=== PATIENT | female | born 1985 ===

== ENCOUNTER 2017-10-01 08:52 | Inpatient (IN) | payer MEDICAID ==
[2017-10-01 09:07] VITALS: BMI 22.4
[2017-10-01] MEDS ORDERED: Sodium Chloride 0.9% 1,000 ML IV ONE (09:16)
[2017-10-01] MEDS ORDERED: Sodium Chloride 0.9% 1,000 ML ONE (09:53)
[2017-10-01 10:13] LABS: HCG,QUALITATIVE URINE NEGATIVE (NEGATIVE)
[2017-10-01 10:14] LABS: BASO % 0.3 % (0.0-2.0); HEMOGLOBIN 12.3 g/dL (11.0-16.0); LYMPH # 0.9 K/uL (1.0-4.3); LYMPH % 6.5 % (20.0-40.0); MEAN CELL VOLUME 98.6 fL (81.0-99.0); MEAN CORPUSCULAR HEMOGLOBIN 32.8 pg (27.0-31.0); MEAN CORPUSCULAR HGB CONC 33.2 g/dL (33.0-37.0); MEAN PLATELET VOLUME 8.8 fL (7.2-11.7); MONO # 0.6 K/uL (0.0-0.8); MONO % 4.6 % (0.0-10.0); NEUT # 11.8 K/uL (1.8-7.0); NEUT % 88.6 % (50.0-75.0); PLATELET COUNT 191 K/uL (130-400); RBC 3.77 Mil/uL (3.80-5.20); RED CELL DISTRIBUTION WIDTH 13.6 % (11.5-14.5); WHITE BLOOD COUNT 13.4 K/uL (4.8-10.8)
[2017-10-01 10:17] LABS: INR 1.2; PROTHROMBIN TIME 12.7 SECONDS (9.7-12.2); SQUAMOUS EPITHIAL 11 /hpf (0-5); URINE BILIRUBIN NEGATIVE (NEGATIVE); URINE BLOOD 1+ (NEGATIVE); URINE CLARITY Hazy (Clear); URINE COLOR Yellow (YELLOW); URINE GLUCOSE (UA) NORMAL (Normal); URINE LEUKOCYTE ESTERASE NEG Leu/uL (Negative); URINE PROTEIN NEGATIVE (NEGATIVE)
[2017-10-01 10:21] LABS: ALB/GLOB RATIO 1.1 (1.0-2.1); ALBUMIN 4.1 g/dL (3.5-5.0); ALT/SGPT 21 U/L (9-52); AST/SGOT 20 U/L (14-36); BLOOD UREA NITROGEN 8 mg/dL (7-17); CALCIUM 9.3 mg/dl (8.6-10.4); GFR AFRICAN-AMERICAN > 60; GFR NON-AFRICAN AMERICAN > 60; LIPASE 64 U/L (23-300)
[2017-10-01 11:02] LABS: LYMPHOCYTE 7 % (20-40); TOTAL CELLS COUNTED 100
[2017-10-01 11:03] LABS: BANDS 6 % (0-2); EOSINOPHIL 1 % (0-4); MONOCYTE 3 % (0-10); NEUTROPHIL 83 % (50-75)
[2017-10-01 11:04] LABS: PLATELET ESTIMATE NORMAL (NORMAL)
--- NOTE | 2017-10-01 11:17 | C.PDOC ---
History Of Present Illness 32-year-old female, presents to the emergency department with complaints of diffuse abdominal pain x3 days. Pt has associated nausea. Denies any vomiting, fever, chills, chest pain, or any other associated symptoms. No other complaints at this time. Time Seen by Provider: 10/01/17 08:54 Chief Complaint (Nursing): Abdominal Pain History Per: Patient History/Exam Limitations: no limitations Current Symptoms Are (Timing): Still Present Severity: Moderate Past Medical History Reviewed: Historical Data, Nursing Documentation, Vital Signs Vital Signs: Last Vital Signs Temp 98 F 10/04/17 16:00 Pulse 78 10/04/17 16:00 Resp 20 10/04/17 16:00 BP 107/66 10/04/17 16:00 Pulse Ox 97 10/04/17 16:00 Family History: States: No Known Family Hx - Social History Hx Alcohol Use: No Hx Substance Use: No - Immunization History Hx Tetanus Toxoid Vaccination: No Hx Influenza Vaccination: No Hx Pneumococcal Vaccination: No Review Of Systems Constitutional: Negative for: Fever, Chills Gastrointestinal: Positive for: Nausea, Abdominal Pain Genitourinary: Negative for: Dysuria, Hematuria Musculoskeletal: Negative for: Back Pain Neurological: Negative for: Weakness Physical Exam - Physical Exam Appears: Non-toxic, No Acute Distress Skin: Normal Color, Warm, Dry, No Rash Head: Atraumatic, Normacephalic Eye(s): bilateral: Normal Inspection Nose: Normal Oral Mucosa: Moist Lips: Normal Appearing Neck: Normal ROM Cardiovascular: Rhythm Regular, No Murmur Respiratory: Normal Breath Sounds, No Accessory Muscle Use Gastrointestinal/Abdominal: Soft, Tenderness (mild, non-focal), No Guarding, No Rebound Extremity: Normal ROM, No Deformity, No Swelling Neurological/Psych: Oriented x3, Normal Speech ED Course And Treatment - Laboratory Results Result Diagrams: 10/04/17 12:43 10/04/17 12:43 O2 Sat by Pulse Oximetry: 98 (RA) Pulse Ox Interpretation: Normal Medical Decision Making Medical Decision Making: abd pain - ro colitis gastritis appendiciits- labs imaging pending inital ct shows ?appendcitis vs colitis, radiolgist recommends repeat ct with po contrast. repeat shows ?tip appendcitis vs abscess. case discussed with dr morales accepts for admission. iv anbiotics initiated. Disposition - Disposition Disposition: HOSPITALIZED Disposition Time: 05:30 Condition: STABLE - Clinical Impression Clinical Impression: Appendicitis, Colitis, Intra-abdominal abscess - Scribe Statement The provider has reviewed the documentation as recorded by the Scribe (Srinath Carmen) All medical record entries made by the Scribe were at my direction and personally dictated by me. I have reviewed the chart and agree that the record accurately reflects my personal performance of the history, physical exam, medical decision making, and the department course for this patient. I have also personally directed, reviewed, and agree with the discharge instructions and disposition. Decision To Admit - Pt Status Changed To: Hospital Disposition Of: Inpatient - Admit Certification Admit to Inpatient:: After my assessment, the patient will require hospitalization for at least two midnights. This is because of the severity of symptoms shown, intensity of services needed, and/or the medical risk in this patient being treated as an outpatient. - InPatient: Physician Admission Certification:: needs gi and surgical eval. - . Bed Request Type: Regular Admitting Physician: Naty Morales Patient Diagnosis: Appendicitis, Colitis, Intra-abdominal abscess
[2017-10-01] MEDS ORDERED: Iodixanol 320 mg/ml 150 ml Bottle IV ONE (11:24)
[2017-10-01] MEDS ORDERED: Iohexol 240 (50 ml) PO STA (13:11)
--- NOTE | 2017-10-01 13:13 | CT ---
Date of service: 10/01/2017 PROCEDURE: CT Abdomen and Pelvis with contrast HISTORY: Abdominal pain and distention COMPARISON: None. TECHNIQUE: CT scan of the abdomen and pelvis was performed after administration of intravenous contrast. Oral contrast was administered. Coronal and sagittal reformatted images were obtained. Contrast dose: 100 mL Visipaque Radiation dose: Total exam DLP = 218.16 mGy-cm. This CT exam was performed using one or more of the following dose reduction techniques: Automated exposure control, adjustment of the mA and/or kV according to patient size, and/or use of iterative reconstruction technique. FINDINGS: LOWER THORAX: The visualized lungs are clear. LIVER: Normal in size with homogeneous enhancement. No gross lesion or ductal dilatation. GALLBLADDER AND BILE DUCTS: No calcified gallstones. PANCREAS: Normal in size with homogeneous enhancement. No gross lesion or ductal dilatation. SPLEEN: Normal in size with homogeneous enhancement. ADRENALS: No discrete nodule. KIDNEYS AND URETERS: Normal in size with homogeneous enhancement. No hydronephrosis. No solid mass. VASCULATURE: No aortic aneurysm. BOWEL: The proximal small bowel loops are normal in caliber. There are fluid-filled mildly dilated distal small bowel lobes. There is apparent mild circumferential mural thickening in the descending colon. There is also segmental mural thickening in the sigmoid colon with mild pericolonic inflammatory changes. APPENDIX: The appendix is not distinctly identified. PERITONEUM: There is small amount of fluid in the right lower quadrant. No free air. LYMPH NODES: Mildly enlarged right lower quadrant mesenteric lymph nodes. BLADDER: Grossly normal in appearance. REPRODUCTIVE: The uterus is normal in size. BONES: No acute fracture. Within normal limits for the patient's age. OTHER FINDINGS: None. IMPRESSION: 1. Apparent moderate mural thickening in the descending colon is nonspecific and could be related to underdistention however nonspecific acute infectious/ inflammatory colitis cannot be entirely excluded. Also noted is segmental mural thickening in the sigmoid colon with mild pericolonic inflammatory changes. No bowel obstruction. 2. The appendix is not distinctly identified. Small amount of fluid in the right lower quadrant is of uncertain etiology and clinical significance. It is indeterminate TB inflammatory changes in the right cord quadrant are related to an inflamed appendix or sigmoid colon. Is there is a clinical concern for acute appendicitis, repeat CT scan with oral contrast is recommended for better evaluation of the ileocecal region an appendix. Important findings were discussed with Dr. Eliud Diop on 10/01/2017 at 12:35 p.m.
[2017-10-01] MEDS ORDERED: Iohexol 240 (50 ml) ONE (13:27)
--- NOTE | 2017-10-01 16:18 | CT ---
Date of service: 10/01/2017 PROCEDURE: CT Abdomen and Pelvis with contrast HISTORY: repeat with po, ro appendicitis COMPARISON: None. TECHNIQUE: CT scan of the abdomen and pelvis was performed without administration of intravenous contrast. Oral contrast was administered. Coronal and sagittal reformatted images were obtained. Radiation dose: Total exam DLP = 218.16 MGy-cm. This CT exam was performed using one or more of the following dose reduction techniques: Automated exposure control, adjustment of the mA and/or kV according to patient size, and/or use of iterative reconstruction technique. FINDINGS: LOWER THORAX: The visualized lungs are clear. LIVER: Normal in size. GALLBLADDER AND BILE DUCTS: There is vicarious excretion of contrast in the gallbladder. PANCREAS: Normal in size. No gross lesion or ductal dilatation. SPLEEN: Normal in size. ADRENALS: No discrete nodule. KIDNEYS AND URETERS: Normal in size. No hydronephrosis. No solid mass. There is contrast in the collecting system from prior intravenous injection. VASCULATURE: No aortic aneurysm. BOWEL: The small bowel loops are normal in caliber. The ascending and transverse colon are unremarkable. There is moderate circumferential mural thickening in the splenic flexure and descending colon. There is also segmental mural thickening in the mid sigmoid colon. APPENDIX: On this follow-up CT scan after ingestion of oral contrast, the appendix is visualized in its entirety 80 except the tip. There is an apparent 2.4 x 4.2 cm heterogeneous rim enhancing lobular lesion in the right lower quadrant and in the right hemipelvis. PERITONEUM: No free fluid. No free air. LYMPH NODES: No enlarged lymph nodes. BLADDER: Unremarkable. REPRODUCTIVE: Unremarkable. BONES: No acute fracture. OTHER FINDINGS: None. IMPRESSION: On this follow-up CT scan after ingestion of oral contrast, the appendix is visualized almost in its entirety except the tip there is heterogeneous rim enhancing lobular lesion in the right lower quadrant and hemipelvis measuring approximately 2.4 x 4.2 cm. Also noted is persistent moderate mural thickening in the splenic flexure and descending colon as well as segmental mural thickening in the mid sigmoid colon. These findings could be related to nonspecific infectious/inflammatory colitis including Crohn's disease with phlegmon/developing abscess in the right lower quadrant and hemipelvis. Since the tip of the appendix is not distinctly visualized, tip appendicitis and developing appendicular abscess is also differential consideration. Clinical correlation and follow-up is advised.
[2017-10-01] MEDS ORDERED: Piperacillin/Tazobact 3.375 gm 100 ML IVPB STA (16:19)
[2017-10-01] MEDS ORDERED: Piperacillin/Tazobact 3.375 gm 100 ML IVPB ONE (16:41)
--- NOTE | 2017-10-01 17:02 | CP.PCM.CON ---
History of Present Illness - History of Present Illness History of Present Illness: Surgery: Dr. Segal CC: Abdominal pain HPI: 32F w. pmh of asthma presents to ED with abdominal pain since Thursday. Pain is predominantly R sided. Pain waxes and waned in severity. No alleviating or aggravating factors. Pt has no changes in appetite. No N/V/D. Pt is having normal BMs. Last BM was yesterday, non-bloody. Passing flatus today. Denies F/ C. No Hematuria/Dysuria. No recent travel. No recent sick contacts. Pt has not had anything to eat out of the ordinary. Last period was September 14 and it was normal. PMH: asthma PSH: laparoscopy for ectopic 9 yrs ago Meds: none NKDA Social: No ETOH/Tobacco/Drugs Fhx: No HX of inflammatory bowel disease Review of Systems - Review of Systems All systems: reviewed and no additional remarkable complaints except Past Patient History - Past Social History Smoking Status: Never Smoked - PSYCHIATRIC Hx Substance Use: No - SURGICAL HISTORY Hx Surgeries: Yes Other/Comment: ectopic with surgery - ANESTHESIA Hx Anesthesia: Yes Hx Anesthesia Reactions: No Meds Allergies/Adverse Reactions: Allergies Allergy/AdvReac Type Severity Reaction Status Date / Time No Known Allergies Allergy Verified 10/01/17 09:05 Physical Exam - Constitutional Appears: Non-toxic, No Acute Distress - Head Exam Head Exam: ATRAUMATIC, NORMOCEPHALIC - Eye Exam Eye Exam: EOMI - ENT Exam ENT Exam: Mucous Membranes Moist, Normal External Ear Exam - Neck Exam Neck exam: Positive for: Full Rom - Respiratory Exam Respiratory Exam: NORMAL BREATHING PATTERN. absent: Accessory Muscle Use, Respiratory Distress - Cardiovascular Exam Cardiovascular Exam: Tachycardia - GI/Abdominal Exam GI & Abdominal Exam: Soft, Tenderness (RUQ/RLQ). absent: Distended, Firm, Guarding, Hernia, Rebound, Rigid Additional comments: no psoas sign, no obturator sign - Extremities Exam Extremities exam: Negative for: calf tenderness, pedal edema - Neurological Exam Neurological exam: Alert, Oriented x3 - Psychiatric Exam Psychiatric exam: Normal Affect, Normal Mood - Skin Skin Exam: Dry, Normal Color, Warm Results - Vital Signs Recent Vital Signs: Last Vital Signs Temp 99.6 F 10/01/17 16:02 Pulse 101 H 10/01/17 16:02 Resp 18 10/01/17 16:02 BP 105/69 10/01/17 16:02 Pulse Ox 98 10/01/17 16:02 - Labs Result Diagrams: 10/01/17 10:00 10/01/17 10:00 Labs: Laboratory Results - last 24 hr 10/01/17 10/01/17 10/01/17 10:00 10:00 10:00 WBC 13.4 H RBC 3.77 L Hgb 12.3 Hct 37.1 MCV 98.6 MCH 32.8 H MCHC 33.2 RDW 13.6 Plt Count 191 MPV 8.8 Neut % (Auto) 88.6 H Lymph % (Auto) 6.5 L [place] % (Auto) 4.6 Eos % (Auto) 0.0 Baso % (Auto) 0.3 Neut # (Auto) 11.8 H Lymph # (Auto) 0.9 L [place] # (Auto) 0.6 Eos # (Auto) 0.0 Baso # (Auto) 0.0 Neutrophils % (Manual) 83 H Band Neutrophils % 6 H Lymphocytes % (Manual) 7 L Monocytes % (Manual) 3 Eosinophils % (Manual) 1 Platelet Estimate Normal RBC Morphology Normal PT 12.7 H INR 1.2 APTT 27 Sodium Potassium Chloride Carbon Dioxide Anion Gap BUN Creatinine Est GFR ( Amer) Est GFR (Non-Af Amer) Random Glucose Calcium Total Bilirubin AST ALT Alkaline Phosphatase Total Protein Albumin Globulin Albumin/Globulin Ratio Lipase Urine Color Yellow Urine Clarity Hazy Urine pH 5.0 Ur Specific [place] 1.019 Urine Protein Negative Urine Glucose (UA) Normal Urine Ketones Negative Urine Blood 1+ H Urine Nitrate Negative Urine Bilirubin Negative Urine Urobilinogen 2.0 H Ur Leukocyte Esterase Neg Urine WBC (Auto) 2 Urine RBC (Auto) 1 Ur Squamous Epith Cells 11 H Urine HCG, Qual Negative 10/01/17 10:00 WBC RBC Hgb Hct MCV MCH MCHC RDW Plt Count MPV Neut % (Auto) Lymph % (Auto) [place] % (Auto) Eos % (Auto) Baso % (Auto) Neut # (Auto) Lymph # (Auto) [place] # (Auto) Eos # (Auto) Baso # (Auto) Neutrophils % (Manual) Band Neutrophils % Lymphocytes % (Manual) Monocytes % (Manual) Eosinophils % (Manual) Platelet Estimate RBC Morphology PT INR APTT Sodium 139 Potassium 4.1 Chloride 104 Carbon Dioxide 22 Anion Gap 16 BUN 8 Creatinine 0.6 L Est GFR ( Amer) > 60 Est GFR (Non-Af Amer) > 60 Random Glucose 113 H Calcium 9.3 Total Bilirubin 0.4 AST 20 ALT 21 Alkaline Phosphatase 77 Total Protein 7.6 Albumin 4.1 Globulin 3.5 Albumin/Globulin Ratio 1.1 Lipase 64 Urine Color Urine Clarity Urine pH Ur Specific [place] Urine Protein Urine Glucose (UA) Urine Ketones Urine Blood Urine Nitrate Urine Bilirubin Urine Urobilinogen Ur Leukocyte Esterase Urine WBC (Auto) Urine RBC (Auto) Ur Squamous Epith Cells Urine HCG, Qual - Imaging and Cardiology CT scan - abdomen Status: Image reviewed by me, Report reviewed by me Assessment & Plan - Assessment and Plan (Free Text) Assessment: 32F w. abd pain likely colitis vs appendicitis -NPO -IVF -zosyn -serial abd exams -no plans for surgery at this time -recommend GI consult -will follow closely -d/w attending Jaydeitis PGY4
--- NOTE | 2017-10-01 17:15 | CP.PCM.HP ---
<Arthur Avalos - Last Filed: 10/01/17 21:24> History of Present Illness - History of Present Illness History of Present Illness: CC "abdominal pain" HPI Patient is a 32 year old female with history of ovarian cyst presents for 2 day history of abdominal pain that started on her right, then went to left side , now currently diffusely all over her abdomen. She states her pain feels like contractions, with her pain going up to a 10 at maximum, and going down to a 7. She states her stools are irregular with occasional constipation and diarrhea. Admits to some distention of her abdomen as well. She states her pain is worse with breathing. She admits to some right sided back pain yesterday that she does not have currently. Admits to chills, diaphoresis from pain, weight loss of 3lbs. She denies headaches, dizziness, nausea, vomiting, shortness of breath , chest pain, dysuria, blood in her urine, leg pain, leg swelling. She last ate around 8pm yesterday. Her last bowel movement was last night. She denies recent travel, recent sickness, recent sick contacts, new foods. She states she eats home cooked foods. She denies difficulty swallowing, sour taste in her mouth. PMH: asthma as a child, ovarian cyst PSH: laparoscopy for ectopic 9 years ago - surgery in [place] Social hx: denies tobacco, alcohol or drug use. Lives with her daughter. 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 maternal aunt -colon cancer in her 60s. maternal grandmother - [place] in her 80s. Meds: none allergies: seafood - rash, itching Code status: full code Healthcare proxy: Sister Jaylen - lives in [facility]. Phone # [phone] PMD: Deanne Present on Admission - Present on Admission Any Indicators Present on Admission: No Review of Systems - Constitutional Constitutional: Chills. absent: Excessive Sweating, Frequent Falls, Headache, Weight Gain - EENT Eyes: absent: Blurred Vision, Change in Vision, Dry Eye Ears: absent: Decreased Hearing, Abnormal Hearing, Dizziness Nose/Mouth/Throat: absent: Dysphagia, Hoarsness, Sore Throat - Cardiovascular Cardiovascular: absent: Chest Pain, Dyspnea, Leg Edema, Lightheadedness, Syncope - Respiratory Respiratory: absent: Cough, Dyspnea, Chest Congestion - Gastrointestinal Gastrointestinal: Abdominal Pain, Bloating, Change in Stool Character. absent: Dysphagia, Fecal Incontinence, Hematemesis, Hematochezia, Vomiting - Genitourinary Genitourinary: absent: Dysuria, Hematuria - Musculoskeletal Musculoskeletal: absent: Back Pain, Limited Range of Motion, Muscle Weakness, Myalgias - Integumentary Integumentary: absent: Rash - Neurological Neurological: absent: Abnormal Movements, Burning Sensations, Numbness, Headaches - Psychiatric Psychiatric: absent: Change in Appetite, Hallucinations, Irritability - Hematologic/Lymphatic Hematologic: absent: Easy Bleeding, Easy Bruising Past Patient History - Past Social History Smoking Status: Never Smoked - PSYCHIATRIC Hx Substance Use: No - SURGICAL HISTORY Hx Surgeries: Yes Other/Comment: ectopic with surgery - ANESTHESIA Hx Anesthesia: Yes Hx Anesthesia Reactions: No Meds Allergies/Adverse Reactions: Allergies Allergy/AdvReac Type Severity Reaction Status Date / Time seafood Allergy Uncoded 10/01/17 18:01 Physical Exam - Constitutional Appears: Well, Non-toxic, No Acute Distress - Head Exam Head Exam: ATRAUMATIC, NORMOCEPHALIC - Eye Exam Eye Exam: EOMI - ENT Exam ENT Exam: Mucous Membranes Dry - Neck Exam Neck exam: Positive for: Full Rom. Negative for: Tenderness - Respiratory Exam Respiratory Exam: Clear to Auscultation Bilateral, NORMAL BREATHING PATTERN. absent: Rales, Rhonchi, Wheezes, Respiratory Distress, Stridor - Cardiovascular Exam Cardiovascular Exam: Tachycardia, REGULAR RHYTHM, +S1, +S2 - GI/Abdominal Exam GI & Abdominal Exam: Distended, Hyperactive Bowel Sounds (in RLQ), Soft, Tenderness (Questionable tenderness to diffusely, especially in RLQ - patient nontender when distracted. Negative Ureña's sign. ). absent: Firm, Guarding, Hernia, Rebound, Rigid - Rectal Exam Rectal Exam: Deferred - Extremities Exam Extremities exam: Positive for: normal capillary refill, pedal pulses present. Negative for: calf tenderness, pedal edema, tenderness - Back Exam Back exam: absent: CVA tenderness (L), CVA tenderness (R), rash noted - Psychiatric Exam Psychiatric exam: Normal Affect, Normal Mood - Skin Skin Exam: Dry, Intact, Warm Results - Vital Signs Recent Vital Signs: Last Vital Signs Temp 99.6 F 10/01/17 16:02 Pulse 101 H 10/01/17 16:02 Resp 18 10/01/17 16:02 BP 105/69 10/01/17 16:02 Pulse Ox 98 10/01/17 16:02 - Labs Result Diagrams: 10/01/17 10:00 10/01/17 10:00 Labs: Laboratory Results - last 24 hr 10/01/17 10/01/17 10/01/17 10:00 10:00 10:00 WBC 13.4 H RBC 3.77 L Hgb 12.3 Hct 37.1 MCV 98.6 MCH 32.8 H MCHC 33.2 RDW 13.6 Plt Count 191 MPV 8.8 Neut % (Auto) 88.6 H Lymph % (Auto) 6.5 L [place] % (Auto) 4.6 Eos % (Auto) 0.0 Baso % (Auto) 0.3 Neut # (Auto) 11.8 H Lymph # (Auto) 0.9 L [place] # (Auto) 0.6 Eos # (Auto) 0.0 Baso # (Auto) 0.0 Neutrophils % (Manual) 83 H Band Neutrophils % 6 H Lymphocytes % (Manual) 7 L Monocytes % (Manual) 3 Eosinophils % (Manual) 1 Platelet Estimate Normal RBC Morphology Normal PT 12.7 H INR 1.2 APTT 27 Sodium Potassium Chloride Carbon Dioxide Anion Gap BUN Creatinine Est GFR ( Amer) Est GFR (Non-Af Amer) Random Glucose Calcium Total Bilirubin AST ALT Alkaline Phosphatase Total Protein Albumin Globulin Albumin/Globulin Ratio Lipase Urine Color Yellow Urine Clarity Hazy Urine pH 5.0 Ur Specific [place] 1.019 Urine Protein Negative Urine Glucose (UA) Normal Urine Ketones Negative Urine Blood 1+ H Urine Nitrate Negative Urine Bilirubin Negative Urine Urobilinogen 2.0 H Ur Leukocyte Esterase Neg Urine WBC (Auto) 2 Urine RBC (Auto) 1 Ur Squamous Epith Cells 11 H Urine HCG, Qual Negative 10/01/17 10:00 WBC RBC Hgb Hct MCV MCH MCHC RDW Plt Count MPV Neut % (Auto) Lymph % (Auto) [place] % (Auto) Eos % (Auto) Baso % (Auto) Neut # (Auto) Lymph # (Auto) [place] # (Auto) Eos # (Auto) Baso # (Auto) Neutrophils % (Manual) Band Neutrophils % Lymphocytes % (Manual) Monocytes % (Manual) Eosinophils % (Manual) Platelet Estimate RBC Morphology PT INR APTT Sodium 139 Potassium 4.1 Chloride 104 Carbon Dioxide 22 Anion Gap 16 BUN 8 Creatinine 0.6 L Est GFR ( Amer) > 60 Est GFR (Non-Af Amer) > 60 Random Glucose 113 H Calcium 9.3 Total Bilirubin 0.4 AST 20 ALT 21 Alkaline Phosphatase 77 Total Protein 7.6 Albumin 4.1 Globulin 3.5 Albumin/Globulin Ratio 1.1 Lipase 64 Urine Color Urine Clarity Urine pH Ur Specific [place] Urine Protein Urine Glucose (UA) Urine Ketones Urine Blood Urine Nitrate Urine Bilirubin Urine Urobilinogen Ur Leukocyte Esterase Urine WBC (Auto) Urine RBC (Auto) Ur Squamous Epith Cells Urine HCG, Qual Assessment & Plan - Assessment and Plan (Free Text) Plan: Assessment/plan 1. Abdominal pain Infectious vs. inflammatory Possible IBD Possible appendicitis * In ED: patient received NS 1L bolus, Zosyn 3.375g IV, protonix 40mg IV, Tylenol * Abdomen CT with IV contrast 1. Apparent moderate mural thickening in the descending colon is nonspecific and could be related to underdistention however nonspecific acute infectious/ inflammatory colitis cannot be entirely excluded. Also noted is segmental mural thickening in the sigmoid colon with mild pericolonic inflammatory changes. No bowel obstruction. 2. The appendix is not distinctly identified. Small amount of fluid in the right lower quadrant is of uncertain etiology and clinical significance. It is indeterminate TB inflammatory changes in the right cord quadrant are related to an inflamed appendix or sigmoid colon. Is there is a clinical concern for acute appendicitis , repeat CT scan with oral contrast is recommended for better evaluation of the ileocecal region an appendix. * Abdomen CT with oral contrast On this follow-up CT scan after ingestion of oral contrast, the appendix is visualized almost in its entirety except the tip there is heterogeneous rim enhancing lobular lesion in the right lower quadrant and hemipelvis measuring approximately 2.4 x 4.2 cm. Also noted is persistent moderate mural thickening in the splenic flexure and descending colon as well as segmental mural thickening in the mid sigmoid colon. These findings could be related to nonspecific infectious/inflammatory colitis including Crohn's disease with phlegmon/developing abscess in the right lower quadrant and hemipelvis. Since the tip of the appendix is not distinctly visualized, tip appendicitis and developing appendicular abscess is also differential consideration. Clinical correlation and follow-up is advised. * Follow up on Abdomen US * GI Dr. Rubio consulted, help appreciated. * Follow up on ERVIN, ANCA, CRP, ESR * NS IV fluids at 100cc/hr * Zosyn 3.375g IVPV Q6 * Tylenol 650mg PO PRN * NPO except meds 2. Leukocytosis * WBC 13.4 with left shift * Afebrile, tachycardic * Lactic acid 1.3 * follow up procalcitonin * Follow up repeat UA * follow up repeat urine and blood cultures 3. Prophylaxis * SCDs Case discussed with Dr. Andrew Avalos, MARKYI <Naty Morales V - Last Filed: 10/03/17 14:06> Results - Vital Signs Recent Vital Signs: Last Vital Signs Temp 98.6 F 10/02/17 15:53 Pulse 107 H 10/02/17 15:53 Resp 20 10/02/17 15:53 BP 102/62 10/02/17 15:53 Pulse Ox 99 10/02/17 15:53 - Labs Result Diagrams: 10/03/17 06:22 10/03/17 06:22 Labs: Laboratory Results - last 24 hr 10/01/17 10/01/17 10/01/17 19:40 19:40 19:40 WBC RBC Hgb Hct MCV MCH MCHC RDW Plt Count MPV Neut % (Auto) Lymph % (Auto) [place] % (Auto) Eos % (Auto) Baso % (Auto) Neut # (Auto) Lymph # (Auto) [place] # (Auto) Eos # (Auto) Baso # (Auto) ESR 48 H Sodium Potassium Chloride Carbon Dioxide Anion Gap BUN Creatinine Est GFR ( Amer) Est GFR (Non-Af Amer) Random Glucose Lactic Acid Calcium Phosphorus Magnesium Total Bilirubin AST ALT Alkaline Phosphatase Total Protein Albumin Globulin Albumin/Globulin Ratio Amylase 97 Procalcitonin Beta HCG, Quant < 2.39 ERVIN 6 Profile Negative 10/01/17 10/01/17 10/02/17 19:40 19:44 07:18 WBC 12.1 H RBC 3.21 L Hgb 10.9 L Hct 31.6 L MCV 98.6 MCH 34.0 H MCHC 34.4 RDW 13.0 Plt Count 191 MPV 8.7 Neut % (Auto) 79.4 H Lymph % (Auto) 12.7 L [place] % (Auto) 7.3 Eos % (Auto) 0.2 Baso % (Auto) 0.4 Neut # (Auto) 9.6 H Lymph # (Auto) 1.5 [place] # (Auto) 0.9 H Eos # (Auto) 0.0 Baso # (Auto) 0.0 ESR Sodium Potassium Chloride Carbon Dioxide Anion Gap BUN Creatinine Est GFR ( Amer) Est GFR (Non-Af Amer) Random Glucose Lactic Acid 1.3 Calcium Phosphorus Magnesium Total Bilirubin AST ALT Alkaline Phosphatase Total Protein Albumin Globulin Albumin/Globulin Ratio Amylase Procalcitonin 0.16 L Beta HCG, Quant ERVIN 6 Profile 10/02/17 07:18 WBC RBC Hgb Hct MCV MCH MCHC RDW Plt Count MPV Neut % (Auto) Lymph % (Auto) [place] % (Auto) Eos % (Auto) Baso % (Auto) Neut # (Auto) Lymph # (Auto) [place] # (Auto) Eos # (Auto) Baso # (Auto) ESR Sodium 137 Potassium 3.8 Chloride 108 H Carbon Dioxide 15 L Anion Gap 17 BUN 6 L Creatinine 0.7 Est GFR ( Amer) > 60 Est GFR (Non-Af Amer) > 60 Random Glucose 64 L Lactic Acid Calcium 8.8 Phosphorus 3.4 Magnesium 1.7 Total Bilirubin 0.8 AST 13 L D ALT 26 Alkaline Phosphatase 73 Total Protein 6.5 Albumin 3.4 L Globulin 3.1 Albumin/Globulin Ratio 1.1 Amylase Procalcitonin Beta HCG, Quant ERVIN 6 Profile Attending/Attestation - Attestation I have personally seen and examined this patient.: Yes I have fully participated in the care of the patient.: Yes I have reviewed all pertinent clinical information: Yes Notes (Text): This is a late computer entry for 10/01/2017. Patient seen, examined, and case discussed with medical director of hospice. Patient seen and examined at [facility] bed 15 in the emergency room at approximately 5:45 PM. Patient was seen earlier by the general surgery team. Patient reporting to the onset of abdominal pain, associated dominant distention denies nausea denies vomiting denies diarrhea. Patient is not . Patient initially received a CAT scan CT with IV contrast and then had a repeat a CAT scan with by mouth contrast. We will consult both GI and general surgery. There is a dispute between appendicitis versus colitis versus possible Crohn's. We will we will give IV antibiotics to cover including Zosyn Patient does have leukocytosis we will check pro-calcitonin urine and blood cultures. Patient does have a history of asthma but is not currently using any nebulizer treatment. Nor does she had any acute exacerbation. Assessment/Plan 1. Abdominal pain Infectious vs. inflammatory Possible IBD Possible appendicitis Assessment/Plan * GI (Dr. Rubio) promotions intern-->help appreciated * General Surgery (Dr. Freddy Segal) promotions intern-->help appreciated * In ED: patient received NS 1L bolus, Zosyn 3.375g IV, protonix 40mg IV, Tylenol * Abdomen CT with IV contrast (10/01/17) 1. Apparent moderate mural thickening in the descending colon is nonspecific and could be related to underdistention however nonspecific acute infectious/ inflammatory colitis cannot be entirely excluded. Also noted is segmental mural thickening in the sigmoid colon with mild pericolonic inflammatory changes. No bowel obstruction. 2. The appendix is not distinctly identified. Small amount of fluid in the right lower quadrant is of uncertain etiology and clinical significance. It is indeterminate TB inflammatory changes in the right cord quadrant are related to an inflamed appendix or sigmoid colon. Is there is a clinical concern for acute appendicitis , repeat CT scan with oral contrast is recommended for better evaluation of the ileocecal region an appendix. * Abdomen CT with oral contrast (10/01/17): On this follow-up CT scan after ingestion of oral contrast, the appendix is visualized almost in its entirety except the tip there is heterogeneous rim enhancing lobular lesion in the right lower quadrant and hemipelvis measuring approximately 2.4 x 4.2 cm. Also noted is persistent moderate mural thickening in the splenic flexure and descending colon as well as segmental mural thickening in the mid sigmoid colon. These findings could be related to nonspecific infectious/inflammatory colitis including Crohn's disease with phlegmon/developing abscess in the right lower quadrant and hemipelvis. Since the tip of the appendix is not distinctly visualized, tip appendicitis and developing appendicular abscess is also differential consideration. Clinical correlation and follow-up is advised. * Follow up on Abdomen US * Follow up on ERVIN, ANCA, CRP, ESR * NS IV fluids at 100cc/hr * Zosyn 3.375g IVPV Q6H (active since 10/01/17) * Tylenol 650mg PO PRN * NPO except meds 2. Leukocytosis Assessment/Plan * WBC 13.4 with left shift * Afebrile, tachycardic * Lactic acid 1.3 * follow up procalcitonin * Follow up repeat UA * follow up repeat urine and blood cultures 3. Prophylaxis * SCDs while in bed * Ambulatory as tolerated
[2017-10-01] MEDS ORDERED: Piperacillin/Tazobact 3.375 GM in Sodium Chloride 100 ML IVPB SCH (17:30)
[2017-10-01] MEDS: Sodium Chloride 0.9% 1,000 ML IV SCH (18:00)
[2017-10-01 20:19] LABS: AMYLASE 97 U/L (30-110)
[2017-10-01 20:21] VITALS: RESP 20
[2017-10-01] MEDS: Piperacill/Tazo 3.375gm in Dex 3.375 GM/50 ML BAG IVPB SCH (22:15)
[2017-10-02] MEDS: Piperacill/Tazo 3.375gm in Dex 3.375 GM/50 ML BAG IVPB SCH ×4 (04:10→22:44)
[2017-10-02] MEDS: Sodium Chloride 0.9% 1,000 ML IV SCH ×4 (04:12→23:54)
[2017-10-02 07:28] LABS: BASO % 0.4 % (0.0-2.0); EOS % 0.2 % (0.0-4.0); HEMOGLOBIN 10.9 g/dL (11.0-16.0); LYMPH # 1.5 K/uL (1.0-4.3); LYMPH % 12.7 % (20.0-40.0); MEAN CELL VOLUME 98.6 fL (81.0-99.0); MEAN CORPUSCULAR HGB CONC 34.4 g/dL (33.0-37.0); MEAN PLATELET VOLUME 8.7 fL (7.2-11.7); MONO # 0.9 K/uL (0.0-0.8); MONO % 7.3 % (0.0-10.0); NEUT # 9.6 K/uL (1.8-7.0); NEUT % 79.4 % (50.0-75.0); RBC 3.21 Mil/uL (3.80-5.20); WHITE BLOOD COUNT 12.1 K/uL (4.8-10.8)
--- NOTE | 2017-10-02 08:03 | CP.PCM.PN ---
Subjective - Date & Time of Evaluation Date of Evaluation: 10/02/17 Time of Evaluation: 08:00 - Subjective Subjective: Surgery: Dr. Segal Pt seen and examined. Resting comfortably in bed. Pain is improved. No N/V/D. No BM, but passing flatus. Pt states that she is hungry and would like to eat. Objective - Vital Signs/Intake and Output Vital Signs (last 24 hours): Temp Pulse Resp BP Pulse Ox 98.2 F 103 H 20 95/59 L 99 10/02/17 07:38 10/02/17 07:38 10/02/17 07:38 10/02/17 07:38 10/02/17 07:38 Intake and Output: 10/02/17 10/02/17 06:59 18:59 Intake Total 800 Balance 800 - Medications Medications: Current Medications Acetaminophen (Tylenol 325mg Tab) 650 mg PO Q6H PRN PRN Reason: Pain, moderate (4-7) Last Admin: 10/02/17 04:10 Dose: 650 mg Sodium Chloride (Sodium Chloride 0.9%) 1,000 mls @ 100 mls/hr IV .Q10H BIPIN Last Admin: 10/02/17 04:12 Dose: 100 mls/hr Piperacillin Sod/Tazobactam Sod (Zosyn 3.375 Gm Iv Premix) 3.375 gm in 50 mls @ 100 mls/hr IVPB Q6H BIPIN PRN Reason: Protocol Last Admin: 10/02/17 04:10 Dose: 100 mls/hr - Labs Labs: 10/02/17 07:18 10/01/17 10:00 PT 12.7 SECONDS (9.7-12.2) H 10/01/17 10:00 INR 1.2 10/01/17 10:00 APTT 27 SECONDS (21-34) 10/01/17 10:00 - Constitutional Appears: Non-toxic, No Acute Distress - Head Exam Head Exam: ATRAUMATIC, NORMOCEPHALIC - Eye Exam Eye Exam: EOMI - ENT Exam ENT Exam: Mucous Membranes Moist - Neck Exam Neck Exam: Full ROM - Respiratory Exam Respiratory Exam: NORMAL BREATHING PATTERN. absent: Accessory Muscle Use, Respiratory Distress - GI/Abdominal Exam GI & Abdominal Exam: Soft, Tenderness (mild R side). absent: Distended, Firm, Guarding, Rigid, Rebound - Extremities Exam Extremities Exam: absent: Calf Tenderness, Pedal Edema - Neurological Exam Neurological Exam: Alert, Awake, Oriented x3 - Psychiatric Exam Psychiatric exam: Normal Affect, Normal Mood - Skin Skin Exam: Dry, Normal Color, Warm Assessment and Plan - Assessment and Plan (Free Text) Assessment: 32F w. abd pain, likely colitis, improving -will start CLD, ADAT -c/w abx -serial abd exams -no plans for surgery at this time -f/u w. GI -d/w attending Zemaitis PGY4
[2017-10-02 08:15] LABS: ALB/GLOB RATIO 1.1 (1.0-2.1); ALBUMIN 3.4 g/dL (3.5-5.0); ALT/SGPT 26 U/L (9-52); AST/SGOT 13 U/L (14-36); BLOOD UREA NITROGEN 6 mg/dL (7-17); CALCIUM 8.8 mg/dl (8.6-10.4); GFR AFRICAN-AMERICAN > 60; GFR NON-AFRICAN AMERICAN > 60
--- NOTE | 2017-10-02 08:16 | CP.PCM.CON ---
History of Present Illness - History of Present Illness History of Present Illness: 32 yo female h/o asthma, presents with lower abdom pain. Reports abd pain x 1 week - worse x 3 days. DENIES DIARRHEA, FEver, chills. FH- Aunt Colon CAncer. Review of Systems - Constitutional Constitutional: Anorexia. absent: Weight Gain - EENT Eyes: absent: Photophobia Nose/Mouth/Throat: absent: Throat Swelling - Cardiovascular Cardiovascular: absent: Chest Pain, Dyspnea - Respiratory Respiratory: absent: Dyspnea, Wheezing - Gastrointestinal Gastrointestinal: Abdominal Pain, Bloating. absent: Coffee Ground Emesis, Constipation, Diarrhea, Dysphagia, Hematemesis, Hematochezia, Loose Stools, Melena - Genitourinary Genitourinary: absent: Hematuria - Musculoskeletal Musculoskeletal: absent: Muscle Cramps, Muscle Weakness - Integumentary Integumentary: absent: Jaundice - Neurological Neurological: absent: Convulsions Past Patient History - Past Medical History & Family History Past Medical History?: Yes - Past Social History Smoking Status: Never Smoked - MUSCULOSKELETAL/RHEUMATOLOGICAL Hx Falls: No - PSYCHIATRIC Hx Substance Use: No - SURGICAL HISTORY Hx Surgeries: Yes Other/Comment: ectopic with surgery - ANESTHESIA Hx Anesthesia: Yes Hx Anesthesia Reactions: No Meds Allergies/Adverse Reactions: Allergies Allergy/AdvReac Type Severity Reaction Status Date / Time seafood Allergy Uncoded 10/01/17 18:01 - Medications Medications: Current Medications Acetaminophen (Tylenol 325mg Tab) 650 mg PO Q6H PRN PRN Reason: Pain, moderate (4-7) Last Admin: 10/02/17 04:10 Dose: 650 mg Sodium Chloride (Sodium Chloride 0.9%) 1,000 mls @ 100 mls/hr IV .Q10H BIPIN Last Admin: 10/02/17 04:12 Dose: 100 mls/hr Piperacillin Sod/Tazobactam Sod (Zosyn 3.375 Gm Iv Premix) 3.375 gm in 50 mls @ 100 mls/hr IVPB Q6H BIPIN PRN Reason: Protocol Last Admin: 10/02/17 04:10 Dose: 100 mls/hr Physical Exam - Constitutional Appears: Non-toxic - Neck Exam Neck exam: Negative for: Tenderness - Respiratory Exam Respiratory Exam: Clear to Auscultation Bilateral - Cardiovascular Exam Cardiovascular Exam: RRR - GI/Abdominal Exam GI & Abdominal Exam: Normal Bowel Sounds, Soft, Tenderness. absent: Distended, Guarding, Mass, Rebound, Rigid Additional comments: mild mid lower tenderness. - Extremities Exam Extremities exam: Negative for: calf tenderness - Neurological Exam Neurological exam: Alert, Oriented x3 Results - Vital Signs Recent Vital Signs: Last Vital Signs Temp 98.2 F 10/02/17 07:38 Pulse 103 H 10/02/17 07:38 Resp 20 10/02/17 07:38 BP 95/59 L 10/02/17 07:38 Pulse Ox 99 10/02/17 07:38 - Labs Result Diagrams: 10/02/17 07:18 10/01/17 10:00 Labs: Laboratory Results - last 24 hr 10/01/17 10/01/17 10/01/17 10:00 10:00 10:00 WBC 13.4 H RBC 3.77 L Hgb 12.3 Hct 37.1 MCV 98.6 MCH 32.8 H MCHC 33.2 RDW 13.6 Plt Count 191 MPV 8.8 Neut % (Auto) 88.6 H Lymph % (Auto) 6.5 L [place] % (Auto) 4.6 Eos % (Auto) 0.0 Baso % (Auto) 0.3 Neut # (Auto) 11.8 H Lymph # (Auto) 0.9 L [place] # (Auto) 0.6 Eos # (Auto) 0.0 Baso # (Auto) 0.0 Neutrophils % (Manual) 83 H Band Neutrophils % 6 H Lymphocytes % (Manual) 7 L Monocytes % (Manual) 3 Eosinophils % (Manual) 1 Platelet Estimate Normal RBC Morphology Normal ESR PT 12.7 H INR 1.2 APTT 27 Sodium Potassium Chloride Carbon Dioxide Anion Gap BUN Creatinine Est GFR ( Amer) Est GFR (Non-Af Amer) Random Glucose Lactic Acid Calcium Total Bilirubin AST ALT Alkaline Phosphatase Total Protein Albumin Globulin Albumin/Globulin Ratio Amylase Lipase Procalcitonin Beta HCG, Quant Urine Color Yellow Urine Clarity Hazy Urine pH 5.0 Ur Specific [place] 1.019 Urine Protein Negative Urine Glucose (UA) Normal Urine Ketones Negative Urine Blood 1+ H Urine Nitrate Negative Urine Bilirubin Negative Urine Urobilinogen 2.0 H Ur Leukocyte Esterase Neg Urine WBC (Auto) 2 Urine RBC (Auto) 1 Ur Squamous Epith Cells 11 H Urine HCG, Qual Negative 10/01/17 10/01/17 10/01/17 10:00 19:40 19:40 WBC RBC Hgb Hct MCV MCH MCHC RDW Plt Count MPV Neut % (Auto) Lymph % (Auto) [place] % (Auto) Eos % (Auto) Baso % (Auto) Neut # (Auto) Lymph # (Auto) [place] # (Auto) Eos # (Auto) Baso # (Auto) Neutrophils % (Manual) Band Neutrophils % Lymphocytes % (Manual) Monocytes % (Manual) Eosinophils % (Manual) Platelet Estimate RBC Morphology ESR 48 H PT INR APTT Sodium 139 Potassium 4.1 Chloride 104 Carbon Dioxide 22 Anion Gap 16 BUN 8 Creatinine 0.6 L Est GFR ( Amer) > 60 Est GFR (Non-Af Amer) > 60 Random Glucose 113 H Lactic Acid Calcium 9.3 Total Bilirubin 0.4 AST 20 ALT 21 Alkaline Phosphatase 77 Total Protein 7.6 Albumin 4.1 Globulin 3.5 Albumin/Globulin Ratio 1.1 Amylase 97 Lipase 64 Procalcitonin Beta HCG, Quant < 2.39 Urine Color Urine Clarity Urine pH Ur Specific [place] Urine Protein Urine Glucose (UA) Urine Ketones Urine Blood Urine Nitrate Urine Bilirubin Urine Urobilinogen Ur Leukocyte Esterase Urine WBC (Auto) Urine RBC (Auto) Ur Squamous Epith Cells Urine HCG, Qual 10/01/17 10/01/17 10/02/17 19:40 19:44 07:18 WBC 12.1 H RBC 3.21 L Hgb 10.9 L Hct 31.6 L MCV 98.6 MCH 34.0 H MCHC 34.4 RDW 13.0 Plt Count 191 MPV 8.7 Neut % (Auto) 79.4 H Lymph % (Auto) 12.7 L [place] % (Auto) 7.3 Eos % (Auto) 0.2 Baso % (Auto) 0.4 Neut # (Auto) 9.6 H Lymph # (Auto) 1.5 [place] # (Auto) 0.9 H Eos # (Auto) 0.0 Baso # (Auto) 0.0 Neutrophils % (Manual) Band Neutrophils % Lymphocytes % (Manual) Monocytes % (Manual) Eosinophils % (Manual) Platelet Estimate RBC Morphology ESR PT INR APTT Sodium Potassium Chloride Carbon Dioxide Anion Gap BUN Creatinine Est GFR ( Amer) Est GFR (Non-Af Amer) Random Glucose Lactic Acid 1.3 Calcium Total Bilirubin AST ALT Alkaline Phosphatase Total Protein Albumin Globulin Albumin/Globulin Ratio Amylase Lipase Procalcitonin 0.16 L Beta HCG, Quant Urine Color Urine Clarity Urine pH Ur Specific [place] Urine Protein Urine Glucose (UA) Urine Ketones Urine Blood Urine Nitrate Urine Bilirubin Urine Urobilinogen Ur Leukocyte Esterase Urine WBC (Auto) Urine RBC (Auto) Ur Squamous Epith Cells Urine HCG, Qual Assessment & Plan (1) Asthma Assessment and Plan: stable Status: Acute (2) Abdominal pain Assessment and Plan: duet o collection seen on CT. COnsider appendix related. Consider Crohns or UC , BUT SHE HAS NO REPORT OF DIARRHEA AND NO RB. Status: Acute (3) Elevated WBCs Assessment and Plan: CONSIDER FROM ABSCESS Status: Acute (4) Colitis Assessment and Plan: Colitis on CT- but pt has no diarrhea, and no RB. Check ASCA, ANCA, CRP, continue antibiotics, surgery follow up. Consider drainage of collection. Status: Acute
--- NOTE | 2017-10-02 08:46 | US ---
Date of service: 10/01/2017 HISTORY: abdominal pain, possible appendicitis COMPARISON: None. TECHNIQUE: Sonographic evaluation of the abdomen. FINDINGS: LIVER: Measures 13.6 cm. Normal echogenicity of the liver parenchyma. No mass. No intrahepatic bile duct dilatation. GALLBLADDER: Unremarkable. No gallstones. COMMON BILE DUCT: Measures 4 mm. No stones. No dilatation. PANCREAS: Unremarkable as visualized. No mass. No ductal dilatation. RIGHT KIDNEY: Measures 10.5cm. Normal echogenicity. No calculus, mass, or hydronephrosis. LEFT KIDNEY: Measures 9.7cm. Normal echogenicity. No calculus, mass, or hydronephrosis. SPLEEN: Normal in size and contour. No mass. AORTA: No aneurysmal dilatation. IVC: Unremarkable. OTHER FINDINGS: Trace fluid in right subhepatic space common nonspecific. IMPRESSION: Unremarkable examination.
[2017-10-02] MEDS: Simethicone 80 mg Chewtab PO SCH ×3 (13:12→22:49)
[2017-10-02] MEDS: metroNIDAZOLE IV 500 mg/100 ml 500 MG/100 ML BAG IVPB SCH (20:53)
--- NOTE | 2017-10-02 23:49 | CP.PCM.PN ---
<Philomena Salazar P - Last Filed: 10/03/17 00:34> Subjective - Date & Time of Evaluation Date of Evaluation: 10/02/17 Time of Evaluation: 09:00 - Subjective Subjective: PGY-[address] Morales. Patient seen and evaluated at bed side. Patient in no acute distress. States she feels better, but does complain of gas pain and distention that began today. Patient reports one loose bowel movement today. Notes her stool is usually well formed. Denies shortness of breath, chest pain, fever, chills, headache, nausea, vomiting, diarrhea, bloody stools and urinary symptoms. Objective - Vital Signs/Intake and Output Vital Signs (last 24 hours): Temp Pulse Resp BP Pulse Ox 99.5 F 94 H 20 101/62 98 10/02/17 23:32 10/02/17 23:32 10/02/17 23:32 10/02/17 23:32 10/02/17 23:32 Intake and Output: 10/02/17 10/03/17 18:59 06:59 Intake Total 1950 1250 Balance 1950 1250 - Medications Medications: Current Medications Acetaminophen (Tylenol 325mg Tab) 650 mg PO Q6H PRN PRN Reason: Pain, moderate (4-7) Last Admin: 10/02/17 13:13 Dose: 650 mg Sodium Chloride (Sodium Chloride 0.9%) 1,000 mls @ 100 mls/hr IV .Q10H [facility] Last Admin: 10/02/17 20:55 Dose: 100 mls/hr Piperacillin Sod/Tazobactam Sod (Zosyn 3.375 Gm Iv Premix) 3.375 gm in 50 mls @ 100 mls/hr IVPB Q6H [facility] PRN Reason: Protocol Last Admin: 10/02/17 22:44 Dose: 100 mls/hr Metronidazole (Flagyl) 500 mg in 100 mls @ 100 mls/hr IVPB Q8H [facility] PRN Reason: Protocol Last Admin: 10/02/17 20:53 Dose: 100 mls/hr Simethicone (Mylicon Chew Tab) 80 mg PO QID [facility] Last Admin: 10/02/17 22:49 Dose: 80 mg - Labs Labs: 10/02/17 07:18 10/02/17 07:18 PT 12.7 SECONDS (9.7-12.2) H 10/01/17 10:00 INR 1.2 10/01/17 10:00 APTT 27 SECONDS (21-34) 10/01/17 10:00 - Constitutional Appears: Non-toxic, No Acute Distress - Head Exam Head Exam: ATRAUMATIC, NORMOCEPHALIC - Eye Exam Eye Exam: EOMI, Normal appearance - ENT Exam ENT Exam: Mucous Membranes Moist - Respiratory Exam Respiratory Exam: Clear to Ausculation Bilateral. absent: Rales, Rhonchi, Wheezes - Cardiovascular Exam Cardiovascular Exam: REGULAR RHYTHM, +S1, +S2 - GI/Abdominal Exam GI & Abdominal Exam: Distended, Tenderness (mild, to right side of abdomen), Normal Bowel Sounds. absent: Guarding, Rebound - Extremities Exam Extremities Exam: absent: Calf Tenderness, Pedal Edema - Neurological Exam Neurological Exam: Alert, Awake, Oriented x3 - Psychiatric Exam Psychiatric exam: Normal Mood - Skin Skin Exam: Dry, Normal Color, Warm Assessment and Plan - Assessment and Plan (Free Text) Plan: 1. Abdominal pain Infectious vs. inflammatory Possible IBD Possible appendicitis * In ED: patient received NS 1L bolus, Zosyn 3.375g IV, protonix 40mg IV, Tylenol * Abdomen CT with IV contrast 1. Apparent moderate mural thickening in the descending colon is nonspecific and could be related to underdistention however nonspecific acute infectious/ inflammatory colitis cannot be entirely excluded. Also noted is segmental mural thickening in the sigmoid colon with mild pericolonic inflammatory changes. No bowel obstruction. 2. The appendix is not distinctly identified. Small amount of fluid in the right lower quadrant is of uncertain etiology and clinical significance. It is indeterminate TB inflammatory changes in the right cord quadrant are related to an inflamed appendix or sigmoid colon. Is there is a clinical concern for acute appendicitis , repeat CT scan with oral contrast is recommended for better evaluation of the ileocecal region an appendix. * Abdomen CT with oral contrast On this follow-up CT scan after ingestion of oral contrast, the appendix is visualized almost in its entirety except the tip there is heterogeneous rim enhancing lobular lesion in the right lower quadrant and hemipelvis measuring approximately 2.4 x 4.2 cm. Also noted is persistent moderate mural thickening in the splenic flexure and descending colon as well as segmental mural thickening in the mid sigmoid colon. These findings could be related to nonspecific infectious/inflammatory colitis including Crohn's disease with phlegmon/developing abscess in the right lower quadrant and hemipelvis. Since the tip of the appendix is not distinctly visualized, tip appendicitis and developing appendicular abscess is also differential consideration. Clinical correlation and follow-up is advised. * Abdomen US 10/01/17: 1. Apparent moderate mural thickening in the descending colon is nonspecific and could be related to underdistention however nonspecific acute infectious/ inflammatory colitis cannot be entirely excluded. Also noted is segmental mural thickening in the sigmoid colon with mild pericolonic inflammatory changes. No bowel obstruction.2. The appendix is not distinctly identified. Small amount of fluid in the right lower quadrant is of uncertain etiology and clinical significance. It is indeterminate TB inflammatory changes in the right cord quadrant are related to an inflamed appendix or sigmoid colon. Is there is a clinical concern for acute appendicitis , repeat CT scan with oral contrast is recommended for better evaluation of the ileocecal region an appendix. * GI Dr. Rubio consulted, help appreciated. * ERVIN-negative, ESR- 48 * f/u ANCA, CRP * NS IV fluids at 100cc/hr * Zosyn 3.375g IVPV Q6 * Tylenol 650mg PO PRN * NPO except meds 2. Leukocytosis * WBC 13.4 with left shift * Afebrile, tachycardic * Lactic acid 1.3 * procalcitonin- 0.16 * UA- 1+ blood, + urobilinogen * urine cx * blood cultures- prelim, no growth 24 hours 3. Prophylaxis * SCDs Surgery recs- serial abdominal exams, no plans for surgery at this time. advance to clear liquid diet. GI recs- consider abscess or appendix related abdominal pain. Colitis on CT but no diarrhea or bloody stools, continue antibiotics and drainage of fluid collection. <Naty Morales V - Last Filed: 10/03/17 14:11> Objective - Vital Signs/Intake and Output Vital Signs (last 24 hours): Temp Pulse Resp BP Pulse Ox 97.4 F L 84 20 105/71 96 10/03/17 08:01 10/03/17 13:17 10/03/17 08:01 10/03/17 08:01 10/03/17 08:01 Intake and Output: 10/03/17 10/03/17 06:59 18:59 Intake Total 1250 200 Balance 1250 200 - Medications Medications: Current Medications Acetaminophen (Tylenol 325mg Tab) 650 mg PO Q6H PRN PRN Reason: Pain, moderate (4-7) Last Admin: 10/03/17 06:33 Dose: 650 mg Albuterol/Ipratropium (Duoneb 3 Mg/0.5 Mg (3 Ml) Ud) 3 ml INH RQ6 [facility] Last Admin: 10/03/17 13:16 Dose: 3 ml Sodium Chloride (Sodium Chloride 0.9%) 1,000 mls @ 100 mls/hr IV .Q10H [facility] Last Admin: 10/03/17 10:00 Dose: Not Given Piperacillin Sod/Tazobactam Sod (Zosyn 3.375 Gm Iv Premix) 3.375 gm in 50 mls @ 100 mls/hr IVPB Q6H [facility] PRN Reason: Protocol Last Admin: 10/03/17 11:09 Dose: 100 mls/hr Metronidazole (Flagyl) 500 mg in 100 mls @ 100 mls/hr IVPB Q8H [facility] PRN Reason: Protocol Last Admin: 10/03/17 12:00 Dose: 100 mls/hr Pantoprazole Sodium (Protonix Ec Tab) 40 mg PO DAILY [facility] Last Admin: 10/03/17 11:00 Dose: 40 mg Saccharomyces Boulardii (Florastor) 250 mg PO BID [facility] Last Admin: 10/03/17 11:00 Dose: 250 mg Simethicone (Mylicon Chew Tab) 80 mg PO QID [facility] Last Admin: 10/03/17 10:55 Dose: 80 mg - Labs Labs: 10/03/17 06:22 10/03/17 06:22 PT 12.7 SECONDS (9.7-12.2) H 10/01/17 10:00 INR 1.2 10/01/17 10:00 APTT 27 SECONDS (21-34) 10/01/17 10:00 Attending/Attestation - Attestation I have personally seen and examined this patient.: Yes I have fully participated in the care of the patient.: Yes I have reviewed all pertinent clinical information, including history, physical exam and plan: Yes Notes (Text): This is a late computer entry for 10/02/17. Patient seen, examined and case discussed with day-time resident. Patient seen during afternoon rounds. Patient reporting abdominal gas pains. Patient reports abdominal pain is about the same. GI consult recommending to treat as abscess and for possible drainage. We will follow-up with general surgery. We will continue IV abx which will cover for colitis vs appendicitis picture. Assessment/Plan 1. Abdominal pain Infectious vs. inflammatory Possible IBD Possible appendicitis Assessment/Plan * GI (Dr. Rubio) forestry consultant-->help appreciated * GI recs- consider abscess or appendix related abdominal pain. Colitis on CT but no diarrhea or bloody stools, continue antibiotics and drainage of fluid collection. * General Surgery (Dr. Freddy Segal) forestry consultant-->help appreciated * Surgery recs- serial abdominal exams, no plans for surgery at this time. advance to clear liquid diet. * In ED: patient received NS 1L bolus, Zosyn 3.375g IV, protonix 40mg IV, Tylenol * Abdomen CT with IV contrast (10/01/17) 1. Apparent moderate mural thickening in the descending colon is nonspecific and could be related to underdistention however nonspecific acute infectious/ inflammatory colitis cannot be entirely excluded. Also noted is segmental mural thickening in the sigmoid colon with mild pericolonic inflammatory changes. No bowel obstruction. 2. The appendix is not distinctly identified. Small amount of fluid in the right lower quadrant is of uncertain etiology and clinical significance. It is indeterminate TB inflammatory changes in the right cord quadrant are related to an inflamed appendix or sigmoid colon. Is there is a clinical concern for acute appendicitis , repeat CT scan with oral contrast is recommended for better evaluation of the ileocecal region an appendix. * Abdomen CT with oral contrast (10/01/17): On this follow-up CT scan after ingestion of oral contrast, the appendix is visualized almost in its entirety except the tip there is heterogeneous rim enhancing lobular lesion in the right lower quadrant and hemipelvis measuring approximately 2.4 x 4.2 cm. Also noted is persistent moderate mural thickening in the splenic flexure and descending colon as well as segmental mural thickening in the mid sigmoid colon. These findings could be related to nonspecific infectious/inflammatory colitis including Crohn's disease with phlegmon/developing abscess in the right lower quadrant and hemipelvis. Since the tip of the appendix is not distinctly visualized, tip appendicitis and developing appendicular abscess is also differential consideration. Clinical correlation and follow-up is advised. * Follow up on Abdomen US * Elevated ESR * Follow up on ERVIN, ANCA, CRP * NS IV fluids at 100cc/hr * Zosyn 3.375g IVPB Q6H (active since 10/01/17) * Add Flagyl 500mg IVPB Q8H (active since 10/02/17) * Tylenol 650mg PO PRN * Simethicone 80mg PO QID * NPO except meds 2. Leukocytosis Assessment/Plan * WBC 13.4 with left shift * Improving * Afebrile, tachycardic * Lactic acid 1.3 * Procalcitonin: 0.13 * Beta-hcg 0.16 * Follow up repeat UA * Pending urine culture * Blood cultures: no growth 3. Prophylaxis * SCDs while in bed * Ambulatory as tolerated
[2017-10-03] MEDS: metroNIDAZOLE IV 500 mg/100 ml 500 MG/100 ML BAG IVPB SCH ×3 (03:00→20:17)
--- NOTE | 2017-10-03 04:00 | CP.PCM.PN ---
<Arthur Avalos - Last Filed: 10/03/17 03:57> Subjective - Date & Time of Evaluation Date of Evaluation: 10/03/17 Time of Evaluation: 03:57 - Subjective Subjective: Progress Note for Hospitalist service Patient seen and examined at bedside. She states that she has had bowel movements that are soft and small, denies diarrhea or constipation. She states she has had a lot of belching and is passing flatus. She states that her menstrual period started again tody. When asked if she could be , she declined stating that she was on contraceptive pills - unable to specify. She states she feels like it is hard to breathe with the pain. She denies chest pain , shortness of breath, headache, dizziness, vomiting, leg pain. Objective - Vital Signs/Intake and Output Vital Signs (last 24 hours): Temp Pulse Resp BP Pulse Ox 99.5 F 94 H 20 101/62 98 10/02/17 23:32 10/02/17 23:32 10/02/17 23:32 10/02/17 23:32 10/02/17 23:32 Intake and Output: 10/02/17 10/03/17 18:59 06:59 Intake Total 1950 1250 Balance 1950 1250 - Medications Medications: Current Medications Acetaminophen (Tylenol 325mg Tab) 650 mg PO Q6H PRN PRN Reason: Pain, moderate (4-7) Last Admin: 10/02/17 13:13 Dose: 650 mg Sodium Chloride (Sodium Chloride 0.9%) 1,000 mls @ 100 mls/hr IV .Q10H [facility] Last Admin: 10/02/17 23:54 Dose: Not Given Piperacillin Sod/Tazobactam Sod (Zosyn 3.375 Gm Iv Premix) 3.375 gm in 50 mls @ 100 mls/hr IVPB Q6H [facility] PRN Reason: Protocol Last Admin: 10/02/17 22:44 Dose: 100 mls/hr Metronidazole (Flagyl) 500 mg in 100 mls @ 100 mls/hr IVPB Q8H [facility] PRN Reason: Protocol Last Admin: 10/02/17 20:53 Dose: 100 mls/hr Simethicone (Mylicon Chew Tab) 80 mg PO QID [facility] Last Admin: 10/02/17 22:49 Dose: 80 mg - Labs Labs: 10/02/17 07:18 10/02/17 07:18 PT 12.7 SECONDS (9.7-12.2) H 10/01/17 10:00 INR 1.2 10/01/17 10:00 APTT 27 SECONDS (21-34) 10/01/17 10:00 - Constitutional Appears: Well, No Acute Distress - Head Exam Head Exam: ATRAUMATIC, NORMOCEPHALIC - Eye Exam Eye Exam: EOMI, PERRL - ENT Exam ENT Exam: Mucous Membranes Moist - Neck Exam Neck Exam: Full ROM. absent: Tenderness - Respiratory Exam Respiratory Exam: Clear to Ausculation Bilateral, NORMAL BREATHING PATTERN. absent: Rales, Rhonchi, Wheezes, Respiratory Distress - Cardiovascular Exam Cardiovascular Exam: REGULAR RHYTHM, +S1, +S2 - GI/Abdominal Exam GI & Abdominal Exam: Distended, Soft, Tenderness (Questionable tenderness to RLQ. No pain with flexion of knees. ), Hyperactive Bowel Sounds. absent: Guarding, Rigid, Hernia - Extremities Exam Extremities Exam: absent: Calf Tenderness, Pedal Edema, Tenderness - Back Exam Back Exam: absent: CVA tenderness (L), CVA tenderness (R) - Neurological Exam Neurological Exam: Alert, Awake, Oriented x3 - Psychiatric Exam Psychiatric exam: Normal Affect, Normal Mood - Skin Skin Exam: Dry, Intact, Warm Assessment and Plan - Assessment and Plan (Free Text) Plan: Assessment/plan 1. Abdominal pain Infectious vs. inflammatory Possible IBD Possible appendicitis * In ED: patient received NS 1L bolus, Zosyn 3.375g IV, protonix 40mg IV, Tylenol * Abdomen CT with IV contrast 1. Apparent moderate mural thickening in the descending colon is nonspecific and could be related to underdistention however nonspecific acute infectious/ inflammatory colitis cannot be entirely excluded. Also noted is segmental mural thickening in the sigmoid colon with mild pericolonic inflammatory changes. No bowel obstruction. 2. The appendix is not distinctly identified. Small amount of fluid in the right lower quadrant is of uncertain etiology and clinical significance. It is indeterminate TB inflammatory changes in the right cord quadrant are related to an inflamed appendix or sigmoid colon. Is there is a clinical concern for acute appendicitis , repeat CT scan with oral contrast is recommended for better evaluation of the ileocecal region an appendix. * Abdomen CT with oral contrast On this follow-up CT scan after ingestion of oral contrast, the appendix is visualized almost in its entirety except the tip there is heterogeneous rim enhancing lobular lesion in the right lower quadrant and hemipelvis measuring approximately 2.4 x 4.2 cm. Also noted is persistent moderate mural thickening in the splenic flexure and descending colon as well as segmental mural thickening in the mid sigmoid colon. These findings could be related to nonspecific infectious/inflammatory colitis including Crohn's disease with phlegmon/developing abscess in the right lower quadrant and hemipelvis. Since the tip of the appendix is not distinctly visualized, tip appendicitis and developing appendicular abscess is also differential consideration. Clinical correlation and follow-up is advised. * Abdomen US 10/01/17: 1. Apparent moderate mural thickening in the descending colon is nonspecific and could be related to underdistention however nonspecific acute infectious/ inflammatory colitis cannot be entirely excluded. Also noted is segmental mural thickening in the sigmoid colon with mild pericolonic inflammatory changes. No bowel obstruction.2. The appendix is not distinctly identified. Small amount of fluid in the right lower quadrant is of uncertain etiology and clinical significance. It is indeterminate TB inflammatory changes in the right cord quadrant are related to an inflamed appendix or sigmoid colon. Is there is a clinical concern for acute appendicitis , repeat CT scan with oral contrast is recommended for better evaluation of the ileocecal region an appendix. * GI Dr. Harrington consulted, help appreciated. * Recommended follow up on ASCA, ANCA, CRP with surgery follow up. Consider drainage of collection. * Surgery consulted, help appreciated * recommended GI follow up with no current plans for surgery. Start on clear liquid diet * ERVIN-negative, ESR- 48 * f/u ANCA, CRP * Blood culture prelim negative * NS IV fluids at 100cc/hr * Zosyn 3.375g IVPV Q6 * Flagyl 500mg IV * Tylenol 650mg PO PRN * NPO except meds 2. Leukocytosis * WBC downtrending * Afebrile, tachycardic * Lactic acid 1.3 * procalcitonin- 0.16 * UA- 1+ blood, + urobilinogen * urine cx * blood cultures- prelim, no growth 24 hours 3. Prophylaxis * SCDs Case discussed with Dr. Andrew Avalos <Naty Morales V - Last Filed: 10/03/17 09:48> Objective - Vital Signs/Intake and Output Vital Signs (last 24 hours): Temp Pulse Resp BP Pulse Ox 97.4 F L 84 20 105/71 96 10/03/17 08:01 10/03/17 08:01 10/03/17 08:01 10/03/17 08:01 10/03/17 08:01 Intake and Output: 10/03/17 10/03/17 06:59 18:59 Intake Total 1250 200 Balance 1250 200 - Medications Medications: Current Medications Acetaminophen (Tylenol 325mg Tab) 650 mg PO Q6H PRN PRN Reason: Pain, moderate (4-7) Last Admin: 10/03/17 06:33 Dose: 650 mg Sodium Chloride (Sodium Chloride 0.9%) 1,000 mls @ 100 mls/hr IV .Q10H [facility] Last Admin: 10/02/17 23:54 Dose: Not Given Piperacillin Sod/Tazobactam Sod (Zosyn 3.375 Gm Iv Premix) 3.375 gm in 50 mls @ 100 mls/hr IVPB Q6H [facility] PRN Reason: Protocol Last Admin: 10/03/17 04:42 Dose: 100 mls/hr Metronidazole (Flagyl) 500 mg in 100 mls @ 100 mls/hr IVPB Q8H [facility] PRN Reason: Protocol Last Admin: 10/03/17 03:00 Dose: 100 mls/hr Simethicone (Mylicon Chew Tab) 80 mg PO QID [facility] Last Admin: 10/02/17 22:49 Dose: 80 mg - Labs Labs: 10/03/17 06:22 10/03/17 06:22 PT 12.7 SECONDS (9.7-12.2) H 10/01/17 10:00 INR 1.2 10/01/17 10:00 APTT 27 SECONDS (21-34) 10/01/17 10:00 Attending/Attestation - Attestation I have personally seen and examined this patient.: Yes I have fully participated in the care of the patient.: Yes I have reviewed all pertinent clinical information, including history, physical exam and plan: Yes Notes (Text): Patient seen, examined and case discussed with director biomedical engineering. Patient is afebrile. Patient's white count has normalized. Left shift has normalized. Patient reports she has loose stool over night and saw blood; but also reports she started on her menstruation yesterday. Patient denies diarrhea, denies BRBPR , denies black stool. Patient reports abdominal pain is better. Patient is tolerating liquid diet. When I spoke with surgery resident, no surgery intervention and did not think for drainage for abscess since exams are benign but will followup with their attending. Will continue IV abx. Assessment/Plan 1. Abdominal pain Infectious vs. inflammatory Possible IBD Possible appendicitis * In ED: patient received NS 1L bolus, Zosyn 3.375g IV, protonix 40mg IV, Tylenol * Abdomen CT with IV contrast (10/01/17) 1. Apparent moderate mural thickening in the descending colon is nonspecific and could be related to underdistention however nonspecific acute infectious/ inflammatory colitis cannot be entirely excluded. Also noted is segmental mural thickening in the sigmoid colon with mild pericolonic inflammatory changes. No bowel obstruction. 2. The appendix is not distinctly identified. Small amount of fluid in the right lower quadrant is of uncertain etiology and clinical significance. It is indeterminate TB inflammatory changes in the right cord quadrant are related to an inflamed appendix or sigmoid colon. Is there is a clinical concern for acute appendicitis , repeat CT scan with oral contrast is recommended for better evaluation of the ileocecal region an appendix. * Abdomen CT with oral contrast (10/01/17): On this follow-up CT scan after ingestion of oral contrast, the appendix is visualized almost in its entirety except the tip there is heterogeneous rim enhancing lobular lesion in the right lower quadrant and hemipelvis measuring approximately 2.4 x 4.2 cm. Also noted is persistent moderate mural thickening in the splenic flexure and descending colon as well as segmental mural thickening in the mid sigmoid colon. These findings could be related to nonspecific infectious/inflammatory colitis including Crohn's disease with phlegmon/developing abscess in the right lower quadrant and hemipelvis. Since the tip of the appendix is not distinctly visualized, tip appendicitis and developing appendicular abscess is also differential consideration. Clinical correlation and follow-up is advised. * Abdomen US 10/01/17: 1. Apparent moderate mural thickening in the descending colon is nonspecific and could be related to underdistention however nonspecific acute infectious/ inflammatory colitis cannot be entirely excluded. Also noted is segmental mural thickening in the sigmoid colon with mild pericolonic inflammatory changes. No bowel obstruction.2. The appendix is not distinctly identified. Small amount of fluid in the right lower quadrant is of uncertain etiology and clinical significance. It is indeterminate TB inflammatory changes in the right cord quadrant are related to an inflamed appendix or sigmoid colon. Is there is a clinical concern for acute appendicitis , repeat CT scan with oral contrast is recommended for better evaluation of the ileocecal region an appendix. * GI Dr. Harrington consulted, help appreciated. * Recommended follow up on ASCA, ANCA, CRP with surgery follow up. Consider drainage of collection. * Surgery consulted, help appreciated * recommended GI follow up with no current plans for surgery. Start on clear liquid diet * ERVIN-negative, ESR- 48 * pending ERVIN/ERVIN/ANCA * Blood culture (10/01/17): no growth after 24hours X2 * NS IV fluids at 100cc/hr * Zosyn 3.375g IVPV Q6H (active since 10/01/17) * Flagyl 500mg IVPB Q8H (active since 10/02/17) * Tylenol 650mg PO PRN * Mylicon Chew 80mg PO QID (for abdominal distension) * Tolerating Liquid diet 2. Leukocytosis * WBC downtrending * Afebrile, tachycardic * Lactic acid 1.3 * procalcitonin- 0.16 * UA- 1+ blood, + urobilinogen * urine cx * blood cultures- prelim, no growth 24 hours 3. Asthma * Patient is not in acute exacerbation * Duonebs 3ml IN Q6H prn shortness of breathe 4. Prophylaxis * SCDs * Ambulatory as tolerated * patient may shower * Protonix 40mg PO daily
[2017-10-03] MEDS: Piperacill/Tazo 3.375gm in Dex 3.375 GM/50 ML BAG IVPB SCH ×4 (04:42→22:31)
[2017-10-03 06:52] LABS: BASO % 0.1 % (0.0-2.0); EOS # 0.1 K/uL (0.0-0.7); EOS % 0.8 % (0.0-4.0); HEMOGLOBIN 10.1 g/dL (11.0-16.0); LYMPH # 1.6 K/uL (1.0-4.3); LYMPH % 20.8 % (20.0-40.0); MEAN CELL VOLUME 97.1 fL (81.0-99.0); MEAN CORPUSCULAR HEMOGLOBIN 33.2 pg (27.0-31.0); MEAN CORPUSCULAR HGB CONC 34.2 g/dL (33.0-37.0); MEAN PLATELET VOLUME 8.4 fL (7.2-11.7); MONO # 0.8 K/uL (0.0-0.8); MONO % 9.9 % (0.0-10.0); NEUT # 5.3 K/uL (1.8-7.0); NEUT % 68.4 % (50.0-75.0); RBC 3.03 Mil/uL (3.80-5.20); RED CELL DISTRIBUTION WIDTH 13.1 % (11.5-14.5); WHITE BLOOD COUNT 7.7 K/uL (4.8-10.8)
[2017-10-03 07:01] LABS: ALT/SGPT 30 U/L (9-52); AST/SGOT 14 U/L (14-36); BLOOD UREA NITROGEN < 2 mg/dL (7-17); CALCIUM 8.6 mg/dl (8.6-10.4); GFR AFRICAN-AMERICAN > 60; GFR NON-AFRICAN AMERICAN > 60
--- NOTE | 2017-10-03 07:52 | CP.PCM.PN ---
Subjective - Date & Time of Evaluation Date of Evaluation: 10/03/17 Time of Evaluation: 07:49 - Subjective Subjective: Surgery: Dr. Segal Pt seen and examined. Resting comfortably in bed. Pain controlled. No N/V. Tolerated CLD. Wants to eat more. +Flatus/BM, 3 loose stools yesterday. Objective - Vital Signs/Intake and Output Vital Signs (last 24 hours): Temp Pulse Resp BP Pulse Ox 99.5 F 94 H 20 101/62 98 10/02/17 23:32 10/02/17 23:32 10/02/17 23:32 10/02/17 23:32 10/02/17 23:32 Intake and Output: 10/03/17 10/03/17 06:59 18:59 Intake Total 1250 Balance 1250 - Medications Medications: Current Medications Acetaminophen (Tylenol 325mg Tab) 650 mg PO Q6H PRN PRN Reason: Pain, moderate (4-7) Last Admin: 10/03/17 06:33 Dose: 650 mg Sodium Chloride (Sodium Chloride 0.9%) 1,000 mls @ 100 mls/hr IV .Q10H [facility] Last Admin: 10/02/17 23:54 Dose: Not Given Piperacillin Sod/Tazobactam Sod (Zosyn 3.375 Gm Iv Premix) 3.375 gm in 50 mls @ 100 mls/hr IVPB Q6H BIPIN PRN Reason: Protocol Last Admin: 10/03/17 04:42 Dose: 100 mls/hr Metronidazole (Flagyl) 500 mg in 100 mls @ 100 mls/hr IVPB Q8H BIPIN PRN Reason: Protocol Last Admin: 10/03/17 03:00 Dose: 100 mls/hr Simethicone (Mylicon Chew Tab) 80 mg PO QID [facility] Last Admin: 10/02/17 22:49 Dose: 80 mg - Labs Labs: 10/03/17 06:22 10/03/17 06:22 PT 12.7 SECONDS (9.7-12.2) H 10/01/17 10:00 INR 1.2 10/01/17 10:00 APTT 27 SECONDS (21-34) 10/01/17 10:00 - Constitutional Appears: Non-toxic, No Acute Distress - Head Exam Head Exam: ATRAUMATIC, NORMOCEPHALIC - Eye Exam Eye Exam: EOMI - ENT Exam ENT Exam: Mucous Membranes Moist - Neck Exam Neck Exam: Full ROM - Respiratory Exam Respiratory Exam: NORMAL BREATHING PATTERN - GI/Abdominal Exam GI & Abdominal Exam: Soft. absent: Distended, Firm, Guarding, Rigid, Tenderness , Rebound - Extremities Exam Extremities Exam: absent: Calf Tenderness, Pedal Edema - Neurological Exam Neurological Exam: Alert, Awake Assessment and Plan - Assessment and Plan (Free Text) Assessment: 32F w. abd pain, likely colitis, improved -F/U AM labs -will advance diet to FLD -c/w abx -no plans for sx at this time -will d/w attending Zemaitis PGY4
[2017-10-03] MEDS: Sodium Chloride 0.9% 1,000 ML IV SCH ×2 (10:00→19:33)
[2017-10-03] MEDS: Simethicone 80 mg Chewtab PO SCH ×4 (10:55→21:11)
[2017-10-03] MEDS: Pantoprazole 40 mg EC Tab PO SCH (11:00)
[2017-10-03] MEDS: Saccharomyces Boulardi 250 mg Cap PO SCH ×2 (11:00→17:39)
--- NOTE | 2017-10-03 12:21 | CP.PCM.PN ---
Subjective - Date & Time of Evaluation Date of Evaluation: 10/03/17 Time of Evaluation: 12:16 - Subjective Subjective: COVERING DR HOPE/ALEXSANDER Patient reports pain much better but diarrhea today. WBCs improved as well on abx. Surgical notes reviewed Objective - Vital Signs/Intake and Output Vital Signs (last 24 hours): Temp Pulse Resp BP Pulse Ox 97.4 F L 84 20 105/71 96 10/03/17 08:01 10/03/17 08:01 10/03/17 08:01 10/03/17 08:01 10/03/17 08:01 Intake and Output: 10/03/17 10/03/17 06:59 18:59 Intake Total 1250 200 Balance 1250 200 - Medications Medications: Current Medications Acetaminophen (Tylenol 325mg Tab) 650 mg PO Q6H PRN PRN Reason: Pain, moderate (4-7) Last Admin: 10/03/17 06:33 Dose: 650 mg Albuterol/Ipratropium (Duoneb 3 Mg/0.5 Mg (3 Ml) Ud) 3 ml INH RQ6 BIPIN Sodium Chloride (Sodium Chloride 0.9%) 1,000 mls @ 100 mls/hr IV .Q10H [facility] Last Admin: 10/03/17 10:00 Dose: Not Given Piperacillin Sod/Tazobactam Sod (Zosyn 3.375 Gm Iv Premix) 3.375 gm in 50 mls @ 100 mls/hr IVPB Q6H BIPIN PRN Reason: Protocol Last Admin: 10/03/17 11:09 Dose: 100 mls/hr Metronidazole (Flagyl) 500 mg in 100 mls @ 100 mls/hr IVPB Q8H BIPIN PRN Reason: Protocol Last Admin: 10/03/17 03:00 Dose: 100 mls/hr Pantoprazole Sodium (Protonix Ec Tab) 40 mg PO DAILY [facility] Last Admin: 10/03/17 11:00 Dose: 40 mg Saccharomyces Boulardii (Florastor) 250 mg PO BID BIPIN Last Admin: 10/03/17 11:00 Dose: 250 mg Simethicone (Mylicon Chew Tab) 80 mg PO QID [facility] Last Admin: 10/03/17 10:55 Dose: 80 mg - Labs Labs: 10/03/17 06:22 10/03/17 06:22 PT 12.7 SECONDS (9.7-12.2) H 10/01/17 10:00 INR 1.2 10/01/17 10:00 APTT 27 SECONDS (21-34) 10/01/17 10:00 - Constitutional Appears: No Acute Distress - Head Exam Head Exam: ATRAUMATIC, NORMOCEPHALIC - Eye Exam Eye Exam: EOMI, PERRL - Respiratory Exam Respiratory Exam: NORMAL BREATHING PATTERN - Cardiovascular Exam Cardiovascular Exam: REGULAR RHYTHM - GI/Abdominal Exam GI & Abdominal Exam: Distended, Soft, Hyperactive Bowel Sounds. absent: Guarding, Tenderness, Mass, Rebound - Extremities Exam Extremities Exam: Normal Inspection Assessment and Plan (1) Acute colitis Assessment & Plan: Patient clinically better on antibiotics. May be infectious colitis vs Crohns. Crohns antibody panel was ordered Surgery does not think this is Ap and do not plan surgery Continue abx and consider outpatient colonoscopy when stable Check stool studies due to new onset diarrhea (?due to CT contrast, abx) that may or may not be related to the colitis Status: Acute (2) Abnormal CT scan, colon Assessment & Plan: as above. Can repeat CT to assess interval change after treatment with abx Status: Acute (3) Infectious gastroenteritis and colitis, unspecified Status: Acute
[2017-10-03] MEDS: Albuterol-Ipratrop 3 mg / 0.5 (3 ml) UD INH SCH ×2 (13:16→20:12)
[2017-10-04] MEDS: Albuterol-Ipratrop 3 mg / 0.5 (3 ml) UD INH SCH ×2 (01:05→07:59)
[2017-10-04] MEDS: metroNIDAZOLE IV 500 mg/100 ml 500 MG/100 ML BAG IVPB SCH ×2 (03:00→11:00)
[2017-10-04] MEDS: Piperacill/Tazo 3.375gm in Dex 3.375 GM/50 ML BAG IVPB SCH ×2 (05:00→11:00)
--- NOTE | 2017-10-04 05:37 | CP.PCM.PN ---
<Arthur Avalos - Last Filed: 10/04/17 05:32> Subjective - Date & Time of Evaluation Date of Evaluation: 10/04/17 Time of Evaluation: 05:32 - Subjective Subjective: Progress note for Hospitalist service Patient seen and examined at bedside. She states that she has had diarrhea all day today. States she feels a little weak, but denies any abdominal pain currently. States she feels a headache which she attributes to not being able to eat. She denies chest pain, shortness of breath, fevers, chills, lower extremity swelling or pain. Objective - Vital Signs/Intake and Output Vital Signs (last 24 hours): Temp Pulse Resp BP Pulse Ox 98 F 94 H 20 99/64 L 96 10/04/17 00:00 10/04/17 00:00 10/04/17 00:00 10/04/17 00:00 10/04/17 00:00 Intake and Output: 10/03/17 10/04/17 18:59 06:59 Intake Total 1310 1050 Balance 1310 1050 - Medications Medications: Current Medications Acetaminophen (Tylenol 325mg Tab) 650 mg PO Q6H PRN PRN Reason: Pain, moderate (4-7) Last Admin: 10/03/17 21:11 Dose: 650 mg Albuterol/Ipratropium (Duoneb 3 Mg/0.5 Mg (3 Ml) Ud) 3 ml INH RQ6 BIPIN Last Admin: 10/04/17 01:05 Dose: Not Given Sodium Chloride (Sodium Chloride 0.9%) 1,000 mls @ 100 mls/hr IV .Q10H [facility] Last Admin: 10/03/17 19:33 Dose: Not Given Piperacillin Sod/Tazobactam Sod (Zosyn 3.375 Gm Iv Premix) 3.375 gm in 50 mls @ 100 mls/hr IVPB Q6H BIPIN PRN Reason: Protocol Last Admin: 10/04/17 05:00 Dose: 100 mls/hr Metronidazole (Flagyl) 500 mg in 100 mls @ 100 mls/hr IVPB Q8H BIPIN PRN Reason: Protocol Last Admin: 10/04/17 03:00 Dose: 100 mls/hr Pantoprazole Sodium (Protonix Ec Tab) 40 mg PO DAILY [facility] Last Admin: 10/03/17 11:00 Dose: 40 mg Saccharomyces Boulardii (Florastor) 250 mg PO BID [facility] Last Admin: 10/03/17 17:39 Dose: 250 mg Simethicone (Mylicon Chew Tab) 80 mg PO QID [facility] Last Admin: 10/03/17 21:11 Dose: 80 mg - Labs Labs: 10/03/17 06:22 10/03/17 06:22 PT 12.7 SECONDS (9.7-12.2) H 10/01/17 10:00 INR 1.2 10/01/17 10:00 APTT 27 SECONDS (21-34) 10/01/17 10:00 - Constitutional Appears: Well, No Acute Distress - Head Exam Head Exam: ATRAUMATIC, NORMOCEPHALIC - Eye Exam Eye Exam: EOMI - ENT Exam ENT Exam: Mucous Membranes Dry - Neck Exam Neck Exam: Full ROM - Respiratory Exam Respiratory Exam: Clear to Ausculation Bilateral, NORMAL BREATHING PATTERN. absent: Rales, Rhonchi, Wheezes, Respiratory Distress, Stridor - Cardiovascular Exam Cardiovascular Exam: REGULAR RHYTHM, +S1, +S2 - GI/Abdominal Exam GI & Abdominal Exam: Soft, Hyperactive Bowel Sounds. absent: Firm, Guarding, Rigid, Tenderness - Extremities Exam Extremities Exam: absent: Calf Tenderness, Pedal Edema - Neurological Exam Neurological Exam: Alert, Awake, Oriented x3 Assessment and Plan - Assessment and Plan (Free Text) Plan: Assessment/plan 1. Abdominal pain Infectious vs. inflammatory Possible IBD Possible appendicitis In ED: patient received NS 1L bolus, Zosyn 3.375g IV, protonix 40mg IV, Tylenol Abdomen CT with IV contrast 1. Apparent moderate mural thickening in the descending colon is nonspecific and could be related to underdistention however nonspecific acute infectious/ inflammatory colitis cannot be entirely excluded. Also noted is segmental mural thickening in the sigmoid colon with mild pericolonic inflammatory changes. No bowel obstruction. 2. The appendix is not distinctly identified. Small amount of fluid in the right lower quadrant is of uncertain etiology and clinical significance. It is indeterminate TB inflammatory changes in the right cord quadrant are related to an inflamed appendix or sigmoid colon. Is there is a clinical concern for acute appendicitis , repeat CT scan with oral contrast is recommended for better evaluation of the ileocecal region an appendix. Abdomen CT with oral contrast On this follow-up CT scan after ingestion of oral contrast, the appendix is visualized almost in its entirety except the tip there is heterogeneous rim enhancing lobular lesion in the right lower quadrant and hemipelvis measuring approximately 2.4 x 4.2 cm. Also noted is persistent moderate mural thickening in the splenic flexure and descending colon as well as segmental mural thickening in the mid sigmoid colon. These findings could be related to nonspecific infectious/inflammatory colitis including Crohn's disease with phlegmon/developing abscess in the right lower quadrant and hemipelvis. Since the tip of the appendix is not distinctly visualized, tip appendicitis and developing appendicular abscess is also differential consideration. Clinical correlation and follow-up is advised. Abdomen US 10/01/17: 1. Apparent moderate mural thickening in the descending colon is nonspecific and could be related to underdistention however nonspecific acute infectious/ inflammatory colitis cannot be entirely excluded. Also noted is segmental mural thickening in the sigmoid colon with mild pericolonic inflammatory changes. No bowel obstruction.2. The appendix is not distinctly identified. Small amount of fluid in the right lower quadrant is of uncertain etiology and clinical significance. It is indeterminate TB inflammatory changes in the right cord quadrant are related to an inflamed appendix or sigmoid colon. Is there is a clinical concern for acute appendicitis , repeat CT scan with oral contrast is recommended for better evaluation of the ileocecal region an appendix. GI Dr. Harrington consulted, help appreciated. Recommended follow up on ASCA, ANCA, CRP with surgery follow up. Consider drainage of collection. Surgery consulted, help appreciated recommended GI follow up with no current plans for surgery. Advance to full liquid diet ERVIN-negative PR3 <1.0 myeloperoxidase ab <1.0 , ESR- 48 f/u ANCA, CRP Blood culture prelim negative NS IV fluids at 100cc/hr Zosyn 3.375g IVPV Q6 Flagyl 500mg IV Tylenol 650mg PO PRN NPO except meds 2. Leukocytosis WBC downtrending Afebrile, tachycardic Lactic acid 1.3 procalcitonin- 0.16 UA- 1+ blood, + urobilinogen urine cx no growth final blood cultures- prelim, no growth 24 hours 3. Diarrhea Stool ova & parasite follow up Stool cultures follow up Stool leukocyte negative C diff toxin negative Simethicone 80mg QID 4. Prophylaxis SCDs GI: Protonix 40mg Florastor 250mg PO BID. Case discussed with Dr. Andrew Avalos, PGY1 <Naty Morales V - Last Filed: 10/04/17 09:09> Objective - Vital Signs/Intake and Output Vital Signs (last 24 hours): Temp Pulse Resp BP Pulse Ox 98.6 F 81 20 113/74 99 10/04/17 08:06 10/04/17 08:06 10/04/17 08:06 10/04/17 08:06 10/04/17 08:06 Intake and Output: 10/04/17 10/04/17 06:59 18:59 Intake Total 2150 Balance 2150 - Medications Medications: Current Medications Acetaminophen (Tylenol 325mg Tab) 650 mg PO Q6H PRN PRN Reason: Pain, moderate (4-7) Last Admin: 10/03/17 21:11 Dose: 650 mg Albuterol/Ipratropium (Duoneb 3 Mg/0.5 Mg (3 Ml) Ud) 3 ml INH RQ6 BIPIN Last Admin: 10/04/17 07:59 Dose: 3 ml Sodium Chloride (Sodium Chloride 0.9%) 1,000 mls @ 100 mls/hr IV .Q10H [facility] Last Admin: 10/03/17 19:33 Dose: Not Given Piperacillin Sod/Tazobactam Sod (Zosyn 3.375 Gm Iv Premix) 3.375 gm in 50 mls @ 100 mls/hr IVPB Q6H BIPIN PRN Reason: Protocol Last Admin: 10/04/17 05:00 Dose: 100 mls/hr Metronidazole (Flagyl) 500 mg in 100 mls @ 100 mls/hr IVPB Q8H BIPIN PRN Reason: Protocol Last Admin: 10/04/17 03:00 Dose: 100 mls/hr Pantoprazole Sodium (Protonix Ec Tab) 40 mg PO DAILY [facility] Last Admin: 10/03/17 11:00 Dose: 40 mg Saccharomyces Boulardii (Florastor) 250 mg PO BID [facility]IPIN Last Admin: 10/03/17 17:39 Dose: 250 mg Simethicone (Mylicon Chew Tab) 80 mg PO QID [facility] Last Admin: 10/03/17 21:11 Dose: 80 mg - Labs Labs: 10/04/17 07:54 10/04/17 07:54 PT 12.7 SECONDS (9.7-12.2) H 10/01/17 10:00 INR 1.2 10/01/17 10:00 APTT 27 SECONDS (21-34) 10/01/17 10:00 Attending/Attestation - Attestation I have personally seen and examined this patient.: Yes I have fully participated in the care of the patient.: Yes I have reviewed all pertinent clinical information, including history, physical exam and plan: Yes Notes (Text): Patient seen, examined and case discussed with medical art therapist. Patient is afebrile. Patient's white count has normalized. Left shift has normalized. Patient reports yesterday she had alot of diarrhea, about 8 episodes. No black stool. reports it was brown. patient reports she only took juice and water yesterday. per workup: patient's c dif negative, stool leukocytes normal, pending stool culture, pending ASCA. pending ova and parasite. Electrolyte repleted. will continue IV fluids. Assessment/Plan 1. Abdominal pain Infectious vs. inflammatory Possible IBD Possible appendicitis * In ED: patient received NS 1L bolus, Zosyn 3.375g IV, protonix 40mg IV, Tylenol * Abdomen CT with IV contrast (10/01/17) 1. Apparent moderate mural thickening in the descending colon is nonspecific and could be related to underdistention however nonspecific acute infectious/ inflammatory colitis cannot be entirely excluded. Also noted is segmental mural thickening in the sigmoid colon with mild pericolonic inflammatory changes. No bowel obstruction. 2. The appendix is not distinctly identified. Small amount of fluid in the right lower quadrant is of uncertain etiology and clinical significance. It is indeterminate TB inflammatory changes in the right cord quadrant are related to an inflamed appendix or sigmoid colon. Is there is a clinical concern for acute appendicitis , repeat CT scan with oral contrast is recommended for better evaluation of the ileocecal region an appendix. * Abdomen CT with oral contrast (10/01/17): On this follow-up CT scan after ingestion of oral contrast, the appendix is visualized almost in its entirety except the tip there is heterogeneous rim enhancing lobular lesion in the right lower quadrant and hemipelvis measuring approximately 2.4 x 4.2 cm. Also noted is persistent moderate mural thickening in the splenic flexure and descending colon as well as segmental mural thickening in the mid sigmoid colon. These findings could be related to nonspecific infectious/inflammatory colitis including Crohn's disease with phlegmon/developing abscess in the right lower quadrant and hemipelvis. Since the tip of the appendix is not distinctly visualized, tip appendicitis and developing appendicular abscess is also differential consideration. Clinical correlation and follow-up is advised. * Abdomen US 10/01/17: 1. Apparent moderate mural thickening in the descending colon is nonspecific and could be related to underdistention however nonspecific acute infectious/ inflammatory colitis cannot be entirely excluded. Also noted is segmental mural thickening in the sigmoid colon with mild pericolonic inflammatory changes. No bowel obstruction.2. The appendix is not distinctly identified. Small amount of fluid in the right lower quadrant is of uncertain etiology and clinical significance. It is indeterminate TB inflammatory changes in the right cord quadrant are related to an inflamed appendix or sigmoid colon. Is there is a clinical concern for acute appendicitis , repeat CT scan with oral contrast is recommended for better evaluation of the ileocecal region an appendix. * GI Dr. Harrington consulted, help appreciated. * Surgery consulted, help appreciated * ERVIN-negative, ESR- 48 * Order for ESR * ERVIN negative * PR3 <1.0 * Myeloperoxidase <1.0 * Blood culture (10/01/17): no growth after 48hours X2 * Urine culture: no growth * NS IV fluids at 100cc/hr * Zosyn 3.375g IVPV Q6H (active since 10/01/17) * Flagyl 500mg IVPB Q8H (active since 10/02/17) * Tylenol 650mg PO PRN * Mylicon Chew 80mg PO QID (for abdominal distension) * Tolerating Liquid diet 2. Leukocytosis * WBC normalized * Afebrile, tachycardic * Lactic acid 1.3 * procalcitonin- 0.16 * UA- 1+ blood, + urobilinogen * urine cx: no growth * blood cultures- prelim, no growth 48 hours X2 3. Asthma * Patient is not in acute exacerbation * Duonebs 3ml IN Q6H prn shortness of breathe 4. Prophylaxis * SCDs * Ambulatory as tolerated * patient may shower * Protonix 40mg PO daily * Florastor 250mg PO BID Disposition: we are awaiting stool leukocytes/ova and stool culture. Will continue IV abx.
--- NOTE | 2017-10-04 07:37 | CP.PCM.PN ---
Subjective - Date & Time of Evaluation Date of Evaluation: 10/04/17 Time of Evaluation: 06:45 - Subjective Subjective: Patient seen and examined. Patient reports feeling much better. Tolerated full liquid diet.Passing flatus. Denies abdominal pain, nausea/vomiting. Objective - Vital Signs/Intake and Output Vital Signs (last 24 hours): Temp Pulse Resp BP Pulse Ox 98 F 78 20 114/75 97 10/04/17 00:00 10/04/17 05:30 10/04/17 05:30 10/04/17 05:30 10/04/17 05:30 Intake and Output: 10/04/17 10/04/17 06:59 18:59 Intake Total 2150 Balance 2150 - Medications Medications: Current Medications Acetaminophen (Tylenol 325mg Tab) 650 mg PO Q6H PRN PRN Reason: Pain, moderate (4-7) Last Admin: 10/03/17 21:11 Dose: 650 mg Albuterol/Ipratropium (Duoneb 3 Mg/0.5 Mg (3 Ml) Ud) 3 ml INH RQ6 BIPIN Last Admin: 10/04/17 01:05 Dose: Not Given Sodium Chloride (Sodium Chloride 0.9%) 1,000 mls @ 100 mls/hr IV .Q10H BIPIN Last Admin: 10/03/17 19:33 Dose: Not Given Piperacillin Sod/Tazobactam Sod (Zosyn 3.375 Gm Iv Premix) 3.375 gm in 50 mls @ 100 mls/hr IVPB Q6H BIPIN PRN Reason: Protocol Last Admin: 10/04/17 05:00 Dose: 100 mls/hr Metronidazole (Flagyl) 500 mg in 100 mls @ 100 mls/hr IVPB Q8H BIPIN PRN Reason: Protocol Last Admin: 10/04/17 03:00 Dose: 100 mls/hr Pantoprazole Sodium (Protonix Ec Tab) 40 mg PO DAILY [facility] Last Admin: 10/03/17 11:00 Dose: 40 mg Saccharomyces Boulardii (Florastor) 250 mg PO BID [facility] Last Admin: 10/03/17 17:39 Dose: 250 mg Simethicone (Mylicon Chew Tab) 80 mg PO QID [facility] Last Admin: 10/03/17 21:11 Dose: 80 mg - Labs Labs: 10/03/17 06:22 10/03/17 06:22 PT 12.7 SECONDS (9.7-12.2) H 10/01/17 10:00 INR 1.2 10/01/17 10:00 APTT 27 SECONDS (21-34) 10/01/17 10:00 - Constitutional Appears: No Acute Distress - Head Exam Head Exam: NORMOCEPHALIC - Eye Exam Eye Exam: Normal appearance - ENT Exam ENT Exam: Mucous Membranes Moist - Respiratory Exam Respiratory Exam: NORMAL BREATHING PATTERN - Cardiovascular Exam Cardiovascular Exam: +S1, +S2 - GI/Abdominal Exam GI & Abdominal Exam: Soft. absent: Distended, Firm, Guarding, Tenderness, Rebound - Neurological Exam Neurological Exam: Alert, Awake, Oriented x3 - Psychiatric Exam Psychiatric exam: Normal Mood - Skin Skin Exam: Dry, Intact, Normal Color, Warm Assessment and Plan - Assessment and Plan (Free Text) Assessment: 32F w. abd pain, likely colitis, improved Plan: -F/U AM labs -will advance diet to regular -c/w abx -no plans for surgery at this time -Recommend PO ABx upon d/c -Further recs per Dr. Philipp Bravo PGY3
[2017-10-04 08:08] LABS: HEMOGLOBIN 9.8 g/dL (11.0-16.0); MEAN CELL VOLUME 97.7 fL (81.0-99.0); MEAN CORPUSCULAR HEMOGLOBIN 32.8 pg (27.0-31.0); MEAN CORPUSCULAR HGB CONC 33.5 g/dL (33.0-37.0); MEAN PLATELET VOLUME 8.7 fL (7.2-11.7); RED CELL DISTRIBUTION WIDTH 13.1 % (11.5-14.5); WHITE BLOOD COUNT 5.4 K/uL (4.8-10.8)
[2017-10-04 08:35] LABS: BLOOD UREA NITROGEN 2 mg/dL (7-17); CALCIUM 8.6 mg/dl (8.6-10.4); GFR AFRICAN-AMERICAN > 60; GFR NON-AFRICAN AMERICAN > 60
[2017-10-04] MEDS ORDERED: Potassium Chloride 20 mEq ER Tab PO ONE (09:00)
[2017-10-04] MEDS ORDERED: Albuterol-Ipratrop 3 mg / 0.5 (3 ml) UD INH PRN (09:03)
[2017-10-04] MEDS: Simethicone 80 mg Chewtab PO SCH ×2 (09:11→13:42)
[2017-10-04] MEDS: Pantoprazole 40 mg EC Tab PO SCH (09:11)
[2017-10-04] MEDS: Saccharomyces Boulardi 250 mg Cap PO SCH (09:11)
[2017-10-04] MEDS: Sodium Chloride 0.9% 1,000 ML IV SCH (09:13)
--- NOTE | 2017-10-04 12:24 | CP.PCM.PN ---
Subjective - Date & Time of Evaluation Date of Evaluation: 10/04/17 Time of Evaluation: 12:21 - Subjective Subjective: COVERING DR BELTRE/HERMINIA Patient reports 3-4 liquid, loose stools and no bleeding. Pain has resolved. Diet advanced. Objective - Vital Signs/Intake and Output Vital Signs (last 24 hours): Temp Pulse Resp BP Pulse Ox 98.6 F 81 20 113/74 99 10/04/17 08:06 10/04/17 08:06 10/04/17 08:06 10/04/17 08:06 10/04/17 08:06 Intake and Output: 10/04/17 10/04/17 06:59 18:59 Intake Total 2150 Balance 2150 - Medications Medications: Current Medications Acetaminophen (Tylenol 325mg Tab) 650 mg PO Q6H PRN PRN Reason: Pain, moderate (4-7) Last Admin: 10/04/17 09:11 Dose: 650 mg Albuterol/Ipratropium (Duoneb 3 Mg/0.5 Mg (3 Ml) Ud) 3 ml INH RQ6 PRN PRN Reason: Shortness of Breath Sodium Chloride (Sodium Chloride 0.9%) 1,000 mls @ 100 mls/hr IV .Q10H [facility] Last Admin: 10/04/17 09:13 Dose: 100 mls/hr Piperacillin Sod/Tazobactam Sod (Zosyn 3.375 Gm Iv Premix) 3.375 gm in 50 mls @ 100 mls/hr IVPB Q6H BIPIN PRN Reason: Protocol Last Admin: 10/04/17 05:00 Dose: 100 mls/hr Metronidazole (Flagyl) 500 mg in 100 mls @ 100 mls/hr IVPB Q8H BIPIN PRN Reason: Protocol Last Admin: 10/04/17 03:00 Dose: 100 mls/hr Pantoprazole Sodium (Protonix Ec Tab) 40 mg PO DAILY [facility] Last Admin: 10/04/17 09:11 Dose: 40 mg Saccharomyces Boulardii (Florastor) 250 mg PO BID [facility] Last Admin: 10/04/17 09:11 Dose: 250 mg Simethicone (Mylicon Chew Tab) 80 mg PO QID [facility] Last Admin: 10/04/17 09:11 Dose: 80 mg - Labs Labs: 10/04/17 07:54 10/04/17 07:54 PT 12.7 SECONDS (9.7-12.2) H 10/01/17 10:00 INR 1.2 10/01/17 10:00 APTT 27 SECONDS (21-34) 10/01/17 10:00 - Constitutional Appears: No Acute Distress - Head Exam Head Exam: ATRAUMATIC, NORMOCEPHALIC - Respiratory Exam Respiratory Exam: NORMAL BREATHING PATTERN - Cardiovascular Exam Cardiovascular Exam: REGULAR RHYTHM, +S1 - GI/Abdominal Exam GI & Abdominal Exam: Distended, Soft, Normal Bowel Sounds. absent: Guarding, Tenderness, Mass, Rebound - Extremities Exam Extremities Exam: Normal Inspection Assessment and Plan (1) Acute colitis Assessment & Plan: May need colonoscopy if diarrhea continues to r/o IBD. Continue supportive care Status: Acute (2) Abnormal CT scan, colon Status: Acute (3) Infectious gastroenteritis and colitis, unspecified Status: Acute
[2017-10-04 13:04] LABS: BASO % 0.3 % (0.0-2.0); EOS % 0.5 % (0.0-4.0); LYMPH # 1.1 K/uL (1.0-4.3); LYMPH % 19.2 % (20.0-40.0); MEAN CORPUSCULAR HEMOGLOBIN 33.2 pg (27.0-31.0); MEAN CORPUSCULAR HGB CONC 33.9 g/dL (33.0-37.0); MEAN PLATELET VOLUME 8.8 fL (7.2-11.7); MONO # 0.5 K/uL (0.0-0.8); MONO % 7.7 % (0.0-10.0); NEUT # 4.2 K/uL (1.8-7.0); NEUT % 72.3 % (50.0-75.0); RBC 3.02 Mil/uL (3.80-5.20); RED CELL DISTRIBUTION WIDTH 13.1 % (11.5-14.5); WHITE BLOOD COUNT 5.9 K/uL (4.8-10.8)
[2017-10-04 13:15] LABS: ALBUMIN 3.1 g/dL (3.5-5.0); ALT/SGPT 26 U/L (9-52); AST/SGOT 13 U/L (14-36); BLOOD UREA NITROGEN 2 mg/dL (7-17); CALCIUM 8.6 mg/dl (8.6-10.4); GFR AFRICAN-AMERICAN > 60; GFR NON-AFRICAN AMERICAN > 60
--- NOTE | 2017-10-04 16:02 | CP.PCM.DIS ---
<Naty Morales V - Last Filed: 10/04/17 22:22> Provider - Provider Date of Admission: 10/01/17 16:30 Attending physician: Naty Morales, DO Hospital Course - Lab Results Lab Results: Micro Results 10/01/17 19:40 Blood Blood Culture - Preliminary NO GROWTH AFTER 3 DAYS 10/01/17 19:40 Blood Blood Culture - Preliminary NO GROWTH AFTER 3 DAYS 10/01/17 20:37 Urine,Clean Catch Urine Culture - Final No Growth (<1,000 CFU/ML) Most Recent Lab Values WBC 5.9 K/uL (4.8-10.8) 10/04/17 12:43 RBC 3.02 Mil/uL (3.80-5.20) L 10/04/17 12:43 Hgb 10.0 g/dL (11.0-16.0) L 10/04/17 12:43 Hct 29.6 % (34.0-47.0) L 10/04/17 12:43 MCV 98.0 fL (81.0-99.0) 10/04/17 12:43 MCH 33.2 pg (27.0-31.0) H 10/04/17 12:43 MCHC 33.9 g/dL (33.0-37.0) 10/04/17 12:43 RDW 13.1 % (11.5-14.5) 10/04/17 12:43 Plt Count 187 K/uL (130-400) 10/04/17 12:43 MPV 8.8 fL (7.2-11.7) 10/04/17 12:43 Neut % (Auto) 72.3 % (50.0-75.0) 10/04/17 12:43 Lymph % (Auto) 19.2 % (20.0-40.0) L 10/04/17 12:43 Sanders % (Auto) 7.7 % (0.0-10.0) 10/04/17 12:43 Eos % (Auto) 0.5 % (0.0-4.0) 10/04/17 12:43 Baso % (Auto) 0.3 % (0.0-2.0) 10/04/17 12:43 Neut # (Auto) 4.2 K/uL (1.8-7.0) 10/04/17 12:43 Lymph # (Auto) 1.1 K/uL (1.0-4.3) 10/04/17 12:43 Sanders # (Auto) 0.5 K/uL (0.0-0.8) 10/04/17 12:43 Eos # (Auto) 0.0 K/uL (0.0-0.7) 10/04/17 12:43 Baso # (Auto) 0.0 K/uL (0.0-0.2) 10/04/17 12:43 Neutrophils % (Manual) 83 % (50-75) H 10/01/17 10:00 Band Neutrophils % 6 % (0-2) H 10/01/17 10:00 Lymphocytes % (Manual) 7 % (20-40) L 10/01/17 10:00 Monocytes % (Manual) 3 % (0-10) 10/01/17 10:00 Eosinophils % (Manual) 1 % (0-4) 10/01/17 10:00 Platelet Estimate Normal (NORMAL) 10/01/17 10:00 RBC Morphology Normal 10/01/17 10:00 ESR 60 mm/hr (0-20) H 10/04/17 12:43 PT 12.7 SECONDS (9.7-12.2) H 10/01/17 10:00 INR 1.2 10/01/17 10:00 APTT 27 SECONDS (21-34) 10/01/17 10:00 Sodium 140 mmol/L (132-148) 10/04/17 12:43 Potassium 3.5 mmol/L (3.6-5.2) L 10/04/17 12:43 Chloride 108 mmol/L (98-107) H 10/04/17 12:43 Carbon Dioxide 23 mmol/L (22-30) 10/04/17 12:43 Anion Gap 13 (10-20) 10/04/17 12:43 BUN 2 mg/dL (7-17) L 10/04/17 12:43 Creatinine 0.6 mg/dL (0.7-1.2) L 10/04/17 12:43 Est GFR ( Amer) > 60 10/04/17 12:43 Est GFR (Non-Af Amer) > 60 10/04/17 12:43 Random Glucose 96 mg/dL (65-105) 10/04/17 12:43 Lactic Acid 1.3 mmol/L (0.7-2.1) 10/01/17 19:40 Calcium 8.6 mg/dl (8.6-10.4) 10/04/17 12:43 Phosphorus 2.9 mg/dL (2.5-4.5) 10/04/17 12:43 Magnesium 1.9 mg/dL (1.6-2.3) 10/04/17 12:43 Total Bilirubin 0.2 mg/dL (0.2-1.3) 10/04/17 12:43 AST 13 U/L (14-36) L 10/04/17 12:43 ALT 26 U/L (9-52) 10/04/17 12:43 Alkaline Phosphatase 74 U/L (38-126) 10/04/17 12:43 C-Reactive Protein 61.70 mg/L (0.0-9.9) H 10/04/17 12:43 Total Protein 6.1 g/dL (6.3-8.3) L 10/04/17 12:43 Albumin 3.1 g/dL (3.5-5.0) L 10/04/17 12:43 Globulin 3.1 gm/dL (2.2-3.9) 10/04/17 12:43 Albumin/Globulin Ratio 1.0 (1.0-2.1) 10/04/17 12:43 Amylase 97 U/L (30-110) 10/01/17 19:40 Lipase 64 U/L (23-300) 10/01/17 10:00 Procalcitonin 0.16 NG/ML (0.19-0.49) L 10/01/17 19:44 Beta HCG, Quant < 2.39 mIU/ML 10/01/17 19:40 Urine Color Yellow (YELLOW) 10/01/17 10:00 Urine Clarity Hazy (Clear) 10/01/17 10:00 Urine pH 5.0 (5.0-8.0) 10/01/17 10:00 Ur Specific Ramsey 1.019 (1.003-1.030) 10/01/17 10:00 Urine Protein Negative mg/dL (NEGATIVE) 10/01/17 10:00 Urine Glucose (UA) Normal mg/dL (Normal) 10/01/17 10:00 Urine Ketones Negative mg/dL (NEGATIVE) 10/01/17 10:00 Urine Blood 1+ (NEGATIVE) H 10/01/17 10:00 Urine Nitrate Negative (NEGATIVE) 10/01/17 10:00 Urine Bilirubin Negative (NEGATIVE) 10/01/17 10:00 Urine Urobilinogen 2.0 mg/dL (0.2-1.0) H 10/01/17 10:00 Ur Leukocyte Esterase Neg Mark/uL (Negative) 10/01/17 10:00 Urine WBC (Auto) 2 /hpf (0-5) 10/01/17 10:00 Urine RBC (Auto) 1 /hpf (0-3) 10/01/17 10:00 Ur Squamous Epith Cells 11 /hpf (0-5) H 10/01/17 10:00 Urine HCG, Qual Negative (NEGATIVE) 10/01/17 10:00 Stool Leukocytes, Qual Negative (NEGATIVE) 10/03/17 11:53 ERVIN 6 Profile Negative (NEGATIVE) 10/01/17 19:40 Proteinase 3 (PR3) <1.0 AI (<1.0) 10/01/17 19:45 Myeloperoxidase Ab <1.0 AI (<1.0) 10/01/17 19:45 C. difficile Ag & Toxin Negative (NEGATIVE) 10/03/17 18:28 Discharge Plan - Discharge Medications Prescriptions: Acetaminophen [Tylenol 325mg tab] 650 mg PO Q6H PRN #120 tab PRN Reason: Pain, Moderate (4-7) Albuterol HFA [Ventolin HFA 90 mcg/actuation (8 g)] 1 puff IH Q6H PRN #1 inhaler PRN Reason: Shortness Of Breath Amoxicillin/Clavulanate [Augmentin 875 MG-125 MG] 1 tab PO BID #16 tab Pantoprazole [Protonix EC Tab] 40 mg PO DAILY #30 ect Saccharomyces Boulardi [Florastor] 250 mg PO BID #60 cap - Follow Up Plan Condition: STABLE Disposition: HOME/ ROUTINE Instructions: Ulcerative Colitis (DC), Ulcerative Colitis (GEN) Additional Instructions: Patient is stable for discharge as per GI and general surgery. Patient is discharged with the following prescriptions: Acetaminophen 650mg PO Q6H PRN Protonix 40mg once daily Florastor 250mg PO twice daily or may probiotic yogurt Augmentin 875/125mg PO BID for 8 days Patient will need to follow up with Dr. Joanne CASTRO/Dr. Harrington, for colonoscomy when completed antibiotic for work up of crohn. Patient must follow up with her PMD, Dr. Alicea, within one week of discharge to be reassessed and for script for repeat CT abdomen/pelvis. If patient's symptoms recur (diarrhea, bloody stools, sever abdominal pain), she should come to ED immediately. Attending/Attestation - Attestation I have personally seen and examined this patient.: Yes I have fully participated in the care of the patient.: Yes I have reviewed all pertinent clinical information, including history, physical exam and plan: Yes Notes (Text): Patient seen, examined and case discussed with biomedical engineering professor. Patient re-evaluated in the afternoon. Patient tolerating regular diet. Patient reports she has had one bowel movement which is loose but more formed. Patient denies abdominal pain. Case discussed with GI and general surgery. Stable from each standpoint respectively for discharge. Patient is discharged with the following prescriptions: Acetaminophen 650mg PO Q6H PRN pain Protonix 40mg once daily (30 tabs/0) Florastor 250mg PO twice daily or may probiotic yogurt if probiotic is expensiver Augmentin 875/125mg PO BID for 8 days (16 tabs/0) to start tomorrow. Patient will need to follow up with Dr. Joanne CASTRO/Dr. Harrington, for colonoscopy when completed antibiotic for work up of crohn's. Patient must follow up with her PMD, Dr. Alicea, within one week of discharge to be reassessed and for script for repeat CT abdomen/pelvis PO and IV contrast and followup ASCA order during hospitalization. If patient's symptoms recur (diarrhea, bloody stools, sever abdominal pain), she should come to ED immediately. This is a summary of patient's hospitalization. Please see EMR for full detail of record. Discharge Diagnoses 1. Abdominal pain-->resolved Infectious vs. inflammatory Possible IBD-->further workup as outpatient Possible appendicitis-->unlikely * In ED: patient received NS 1L bolus, Zosyn 3.375g IV, protonix 40mg IV, Tylenol * Abdomen CT with IV contrast (10/01/17) 1. Apparent moderate mural thickening in the descending colon is nonspecific and could be related to underdistention however nonspecific acute infectious/ inflammatory colitis cannot be entirely excluded. Also noted is segmental mural thickening in the sigmoid colon with mild pericolonic inflammatory changes. No bowel obstruction. 2. The appendix is not distinctly identified. Small amount of fluid in the right lower quadrant is of uncertain etiology and clinical significance. It is indeterminate TB inflammatory changes in the right cord quadrant are related to an inflamed appendix or sigmoid colon. Is there is a clinical concern for acute appendicitis , repeat CT scan with oral contrast is recommended for better evaluation of the ileocecal region an appendix. * Abdomen CT with oral contrast (10/01/17): On this follow-up CT scan after ingestion of oral contrast, the appendix is visualized almost in its entirety except the tip there is heterogeneous rim enhancing lobular lesion in the right lower quadrant and hemipelvis measuring approximately 2.4 x 4.2 cm. Also noted is persistent moderate mural thickening in the splenic flexure and descending colon as well as segmental mural thickening in the mid sigmoid colon. These findings could be related to nonspecific infectious/inflammatory colitis including Crohn's disease with phlegmon/developing abscess in the right lower quadrant and hemipelvis. Since the tip of the appendix is not distinctly visualized, tip appendicitis and developing appendicular abscess is also differential consideration. Clinical correlation and follow-up is advised. * Abdomen US 10/01/17: 1. Apparent moderate mural thickening in the descending colon is nonspecific and could be related to underdistention however nonspecific acute infectious/ inflammatory colitis cannot be entirely excluded. Also noted is segmental mural thickening in the sigmoid colon with mild pericolonic inflammatory changes. No bowel obstruction.2. The appendix is not distinctly identified. Small amount of fluid in the right lower quadrant is of uncertain etiology and clinical significance. It is indeterminate TB inflammatory changes in the right cord quadrant are related to an inflamed appendix or sigmoid colon. Is there is a clinical concern for acute appendicitis , repeat CT scan with oral contrast is recommended for better evaluation of the ileocecal region an appendix. * GI Dr. Harrington consulted, help appreciated. * Discussed with Dr. Feng covering Dr. Harrington/Joanne this weekend, recommend for follow-up outpatient CT abdomen po/iv contrast and when has completed antibiotics to cover for colitis will need colonoscopy * Surgery consulted, help appreciated * No surgery intervention * Recommend d/c on PO antibiotics * ERVIN-negative, ESR- 48 * Order for ESR * ERVIN negative * PR3 <1.0 * Myeloperoxidase <1.0 * Blood culture (10/01/17): no growth after 3 days X2 * Urine culture: no growth * NS IV fluids at 100cc/hr * Zosyn 3.375g IVPV Q6H (active since 10/01/17) * Flagyl 500mg IVPB Q8H (active since 10/02/17) * Stool culture: normal--Prelim * Tylenol 650mg PO PRN * Mylicon Chew 80mg PO QID (for abdominal distension) * Tolerating Regular Diet 2. Leukocytosis-->Normalized * WBC normalized * Afebrile, tachycardic * Lactic acid 1.3 * procalcitonin- 0.16 * UA- 1+ blood, + urobilinogen * urine cx: no growth * blood cultures- prelim, no growth 48 hours X2 3. Asthma-->Controlled * Patient is not in acute exacerbation * Duonebs 3ml IN Q6H prn shortness of breathe 4. Prophylaxis * SCDs * Ambulatory as tolerated * patient may shower * Protonix 40mg PO daily * Florastor 250mg PO BID <Philomena Salazar P - Last Filed: 10/05/17 00:50> Provider - Provider Date of Admission: 10/01/17 16:30 Attending physician: Naty Morales DO Primary care physician: Dr. Alicea Consults: Dr. Harrington/Phuc Time Spent in preparation of Discharge (in minutes): 45 Diagnosis - Discharge Diagnosis (1) Acute colitis Status: Acute Hospital Course - Lab Results Lab Results: Micro Results 10/01/17 19:40 Blood Blood Culture - Preliminary NO GROWTH AFTER 48 HOURS 10/01/17 19:40 Blood Blood Culture - Preliminary NO GROWTH AFTER 48 HOURS 10/01/17 20:37 Urine,Clean Catch Urine Culture - Final No Growth (<1,000 CFU/ML) Most Recent Lab Values WBC 5.9 K/uL (4.8-10.8) 10/04/17 12:43 RBC 3.02 Mil/uL (3.80-5.20) L 10/04/17 12:43 Hgb 10.0 g/dL (11.0-16.0) L 10/04/17 12:43 Hct 29.6 % (34.0-47.0) L 10/04/17 12:43 MCV 98.0 fL (81.0-99.0) 10/04/17 12:43 MCH 33.2 pg (27.0-31.0) H 10/04/17 12:43 MCHC 33.9 g/dL (33.0-37.0) 10/04/17 12:43 RDW 13.1 % (11.5-14.5) 10/04/17 12:43 Plt Count 187 K/uL (130-400) 10/04/17 12:43 MPV 8.8 fL (7.2-11.7) 10/04/17 12:43 Neut % (Auto) 72.3 % (50.0-75.0) 10/04/17 12:43 Lymph % (Auto) 19.2 % (20.0-40.0) L 10/04/17 12:43 Sanders % (Auto) 7.7 % (0.0-10.0) 10/04/17 12:43 Eos % (Auto) 0.5 % (0.0-4.0) 10/04/17 12:43 Baso % (Auto) 0.3 % (0.0-2.0) 10/04/17 12:43 Neut # (Auto) 4.2 K/uL (1.8-7.0) 10/04/17 12:43 Lymph # (Auto) 1.1 K/uL (1.0-4.3) 10/04/17 12:43 Sanders # (Auto) 0.5 K/uL (0.0-0.8) 10/04/17 12:43 Eos # (Auto) 0.0 K/uL (0.0-0.7) 10/04/17 12:43 Baso # (Auto) 0.0 K/uL (0.0-0.2) 10/04/17 12:43 Neutrophils % (Manual) 83 % (50-75) H 10/01/17 10:00 Band Neutrophils % 6 % (0-2) H 10/01/17 10:00 Lymphocytes % (Manual) 7 % (20-40) L 10/01/17 10:00 Monocytes % (Manual) 3 % (0-10) 10/01/17 10:00 Eosinophils % (Manual) 1 % (0-4) 10/01/17 10:00 Platelet Estimate Normal (NORMAL) 10/01/17 10:00 RBC Morphology Normal 10/01/17 10:00 ESR 60 mm/hr (0-20) H 10/04/17 12:43 PT 12.7 SECONDS (9.7-12.2) H 10/01/17 10:00 INR 1.2 10/01/17 10:00 APTT 27 SECONDS (21-34) 10/01/17 10:00 Sodium 140 mmol/L (132-148) 10/04/17 12:43 Potassium 3.5 mmol/L (3.6-5.2) L 10/04/17 12:43 Chloride 108 mmol/L (98-107) H 10/04/17 12:43 Carbon Dioxide 23 mmol/L (22-30) 10/04/17 12:43 Anion Gap 13 (10-20) 10/04/17 12:43 BUN 2 mg/dL (7-17) L 10/04/17 12:43 Creatinine 0.6 mg/dL (0.7-1.2) L 10/04/17 12:43 Est GFR ( Amer) > 60 10/04/17 12:43 Est GFR (Non-Af Amer) > 60 10/04/17 12:43 Random Glucose 96 mg/dL (65-105) 10/04/17 12:43 Lactic Acid 1.3 mmol/L (0.7-2.1) 10/01/17 19:40 Calcium 8.6 mg/dl (8.6-10.4) 10/04/17 12:43 Phosphorus 2.9 mg/dL (2.5-4.5) 10/04/17 12:43 Magnesium 1.9 mg/dL (1.6-2.3) 10/04/17 12:43 Total Bilirubin 0.2 mg/dL (0.2-1.3) 10/04/17 12:43 AST 13 U/L (14-36) L 10/04/17 12:43 ALT 26 U/L (9-52) 10/04/17 12:43 Alkaline Phosphatase 74 U/L (38-126) 10/04/17 12:43 C-Reactive Protein 61.70 mg/L (0.0-9.9) H 10/04/17 12:43 Total Protein 6.1 g/dL (6.3-8.3) L 10/04/17 12:43 Albumin 3.1 g/dL (3.5-5.0) L 10/04/17 12:43 Globulin 3.1 gm/dL (2.2-3.9) 10/04/17 12:43 Albumin/Globulin Ratio 1.0 (1.0-2.1) 10/04/17 12:43 Amylase 97 U/L (30-110) 10/01/17 19:40 Lipase 64 U/L (23-300) 10/01/17 10:00 Procalcitonin 0.16 NG/ML (0.19-0.49) L 10/01/17 19:44 Beta HCG, Quant < 2.39 mIU/ML 10/01/17 19:40 Urine Color Yellow (YELLOW) 10/01/17 10:00 Urine Clarity Hazy (Clear) 10/01/17 10:00 Urine pH 5.0 (5.0-8.0) 10/01/17 10:00 Ur Specific Ramsey 1.019 (1.003-1.030) 10/01/17 10:00 Urine Protein Negative mg/dL (NEGATIVE) 10/01/17 10:00 Urine Glucose (UA) Normal mg/dL (Normal) 10/01/17 10:00 Urine Ketones Negative mg/dL (NEGATIVE) 10/01/17 10:00 Urine Blood 1+ (NEGATIVE) H 10/01/17 10:00 Urine Nitrate Negative (NEGATIVE) 10/01/17 10:00 Urine Bilirubin Negative (NEGATIVE) 10/01/17 10:00 Urine Urobilinogen 2.0 mg/dL (0.2-1.0) H 10/01/17 10:00 Ur Leukocyte Esterase Neg Mark/uL (Negative) 10/01/17 10:00 Urine WBC (Auto) 2 /hpf (0-5) 10/01/17 10:00 Urine RBC (Auto) 1 /hpf (0-3) 10/01/17 10:00 Ur Squamous Epith Cells 11 /hpf (0-5) H 10/01/17 10:00 Urine HCG, Qual Negative (NEGATIVE) 10/01/17 10:00 Stool Leukocytes, Qual Negative (NEGATIVE) 10/03/17 11:53 ERVIN 6 Profile Negative (NEGATIVE) 10/01/17 19:40 Proteinase 3 (PR3) <1.0 AI (<1.0) 10/01/17 19:45 Myeloperoxidase Ab <1.0 AI (<1.0) 10/01/17 19:45 C. difficile Ag & Toxin Negative (NEGATIVE) 10/03/17 18:28 - Hospital Course Hospital Course: On admission: Patient is a 32 year old female with history of ovarian cyst presents for 2 day history of abdominal pain that started on her right, then went to left side, now currently diffusely all over her abdomen. She states her pain feels like contractions, with her pain going up to a 10 at maximum, and going down to a 7. She states her stools are irregular with occasional constipation and diarrhea. Admits to some distention of her abdomen as well. She states her pain is worse with breathing. She admits to some right sided back pain yesterday that she does not have currently. Admits to chills, diaphoresis from pain, weight loss of 3lbs. She denies headaches, dizziness, nausea, vomiting, shortness of breath , chest pain, dysuria, blood in her urine, leg pain, leg swelling. She last ate around 8pm yesterday. Her last bowel movement was last night. She denies recent travel, recent sickness, recent sick contacts, new foods. She states she eats home cooked foods. She denies difficulty swallowing, sour taste in her mouth. PMH: asthma as a child, ovarian cyst PSH: laparoscopy for ectopic 9 years ago - surgery in [place] Social hx: denies tobacco, alcohol or drug use. Lives with her daughter. 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 maternal aunt -colon cancer in her 60s. maternal grandmother - [place] in her 80s. Meds: none allergies: seafood - rash, itching Hospital Course: Patient was admitted for abdominal pain possibly due to infectious colitis vs inflammatory colitis vs abscess vs appendicitis. The following studies were obtained: -Abdomen CT with IV contrast 1. Apparent moderate mural thickening in the descending colon is nonspecific and could be related to underdistention however nonspecific acute infectious/ inflammatory colitis cannot be entirely excluded. Also noted is segmental mural thickening in the sigmoid colon with mild pericolonic inflammatory changes. No bowel obstruction. 2. The appendix is not distinctly identified. Small amount of fluid in the right lower quadrant is of uncertain etiology and clinical significance. It is indeterminate TB inflammatory changes in the right cord quadrant are related to an inflamed appendix or sigmoid colon. Is there is a clinical concern for acute appendicitis , repeat CT scan with oral contrast is recommended for better evaluation of the ileocecal region an appendix. -Abdomen CT with oral contrast On this follow-up CT scan after ingestion of oral contrast, the appendix is visualized almost in its entirety except the tip there is heterogeneous rim enhancing lobular lesion in the right lower quadrant and hemipelvis measuring approximately 2.4 x 4.2 cm. Also noted is persistent moderate mural thickening in the splenic flexure and descending colon as well as segmental mural thickening in the mid sigmoid colon. These findings could be related to nonspecific infectious/inflammatory colitis including Crohn's disease with phlegmon/developing abscess in the right lower quadrant and hemipelvis. Since the tip of the appendix is not distinctly visualized, tip appendicitis and developing appendicular abscess is also differential consideration. Clinical correlation and follow-up is advised. -Abdomen US 10/01/17: 1. Apparent moderate mural thickening in the descending colon is nonspecific and could be related to underdistention however nonspecific acute infectious/ inflammatory colitis cannot be entirely excluded. Also noted is segmental mural thickening in the sigmoid colon with mild pericolonic inflammatory changes. No bowel obstruction.2. The appendix is not distinctly identified. Small amount of fluid in the right lower quadrant is of uncertain etiology and clinical significance. It is indeterminate TB inflammatory changes in the right cord quadrant are related to an inflamed appendix or sigmoid colon. Is there is a clinical concern for acute appendicitis , repeat CT scan with oral contrast is recommended for better evaluation of the ileocecal region an appendix. GI Dr. Harrington, GI was consulted. Recommended follow up on ASCA, ANCA, CRP, and consider draining fluid. Surgery consulted and recommended no for surgery, instead treat with IV abx and advancing diet as necessary. Patient was treated with NS IV fluids at 100cc/hr, Zosyn 3.375g IVPV Q6, Flagyl 500mg IV, is now much improved and tolerating regular diet. Instructions: Patient is stable for discharge as per GI and general surgery. Patient is discharged with the following prescriptions: Acetaminophen 650mg PO Q6H PRN Protonix 40mg once daily Florastor 250mg PO twice daily or may probiotic yogurt Augmentin 875/125mg PO BID for 8 days Patient will need to follow up with [facility], Dr. Rubio/Dr. Harrington, for colonoscomy when completed antibiotic for work up of crohn. Patient must follow up with her PMD, Dr. Alicea, within one week of discharge to be reassessed and for script for repeat CT abdomen/pelvis. If patient's symptoms recur (diarrhea, bloody stools, sever abdominal pain), she should come to ED immediately. Discharge Exam - Head Exam Head Exam: ATRAUMATIC, NORMOCEPHALIC - Eye Exam Eye Exam: EOMI, Normal appearance - ENT Exam ENT Exam: Mucous Membranes Moist - Neck Exam Neck exam: Normal Inspection - Respiratory Exam Respiratory Exam: Clear to PA & Lateral, NORMAL BREATHING PATTERN. absent: Rales, Rhonchi, Wheezes - Cardiovascular Exam Cardiovascular Exam: REGULAR RHYTHM, +S1, +S2 - GI/Abdominal Exam GI & Abdominal Exam: Normal Bowel Sounds, Soft. absent: Tenderness - Neurological Exam Neurological exam: Alert, Oriented x3 - Psychiatric Exam Psychiatric exam: Normal Mood - Skin Skin Exam: Dry, Normal Color, Warm
[2017-10-04 16:41] VITALS: BP 107/66; PULSE 78; TEMP 98
[2017-10-05 13:11] VITALS: O2SAT 98
== END 2017-10-04 17:47 | disposition home or self-care (01) | DRG 814 ==
LOC: C.ER 08:52 → C.9E 16:30 → C.3T 17:28
PROVIDERS: ADMIT Hospitalist; ATTEND Hospitalist
DX: K52.9 Noninfective gastroenteritis and colitis, unspecified (principal); K59.00 Constipation, unspecified; J45.909 Unspecified asthma, uncomplicated; K37 Unspecified appendicitis

== ENCOUNTER 2017-11-19 07:19 | Day surgery (SDC) | payer MEDICAID ==
[2017-11-13 13:44] VITALS: BMI 21.7
[2017-11-19 08:08] VITALS: O2SAT 100
[2017-11-19] MEDS ORDERED: Propofol 10 mg/ml Inj (20 ML) ONE ×3 (08:50→09:37)
--- NOTE | 2017-11-19 09:20 | CP.SDSHP ---
Same Day Surgery H & P - History Proposed Procedure: colonoscopy Pre-Op Diagnosis: follow up colitis - Previous Medical/Surgical History Pulmonary: Asthma - Allergies Allergies: Allergies seafood Allergy (Intermediate, Uncoded 11/13/17 13:45) RASH - Physical Exam General Appearance: NAD Vital Signs: Vital Signs 11/19/17 08:01 Temperature 97.5 F L Pulse Rate 79 Respiratory 19 Rate Blood Pressure 101/63 O2 Sat by Pulse 100 Oximetry Mental Status: Alert & Oriented x3 Neuro: WNL Heart: WNL Lungs: WNL GI: WNL - {Optional Preform as Required} Abdomen: WNL - Impression Pt. Evaluated Today:Candidate for Anesthesia & Procedure: Yes - Date & Time Date: 11/19/17 Time: 09:20 Short Stay Discharge - Short Stay Discharge Admitting Diagnosis/Reason for Visit: COLITIS Disposition: HOME/ ROUTINE
[2017-11-19 10:16] VITALS: TEMP 97
[2017-11-19 10:53] VITALS: RESP 20
[2017-11-19 10:58] VITALS: BP 114/79; PULSE 88
== END 2017-11-19 10:50 | disposition home or self-care (01) ==
LOC: C.ENDO 07:19
PROVIDERS: ATTEND Internal Medicine Gastroenterology
DX: K52.9 Noninfective gastroenteritis and colitis, unspecified (principal); K64.8 Other hemorrhoids
CPT/HCPCS: 45378; 84703; J2704

== ENCOUNTER 2017-12-17 08:57 | Day surgery (SDC) | payer MEDICAID ==
[2017-11-13 13:44] VITALS: BMI 21.7
[2017-12-17] MEDS ORDERED: Midazolam 2 MG/2 ML VIAL ONE (11:22)
[2017-12-17] MEDS ORDERED: Propofol 10 mg/ml Inj (20 ML) ONE ×2 (11:22→11:29)
--- NOTE | 2017-12-17 11:22 | CP.SDSHP ---
Same Day Surgery H & P - History Proposed Procedure: EGD Pre-Op Diagnosis: abdominal pain - Allergies Allergies: Allergies seafood Allergy (Intermediate, Uncoded 11/13/17 13:45) RASH - Physical Exam General Appearance: NAD Vital Signs: Vital Signs 12/17/17 09:45 Temperature 97 F L Pulse Rate 80 Respiratory 20 Rate Blood Pressure 107/68 O2 Sat by Pulse 100 Oximetry Mental Status: Alert & Oriented x3 Neuro: WNL Heart: WNL Lungs: WNL GI: WNL - {Optional Preform as Required} Abdomen: WNL - Impression Pt. Evaluated Today:Candidate for Anesthesia & Procedure: Yes - Date & Time Date: 12/17/17 Time: 11:22 Short Stay Discharge - Short Stay Discharge Admitting Diagnosis/Reason for Visit: ABDOMINAL PAIN Disposition: HOME/ ROUTINE
[2017-12-17 12:03] VITALS: TEMP 98.5
[2017-12-17 14:11] VITALS: BP 118/71; PULSE 88; RESP 14; O2SAT 99
== END 2017-12-17 13:05 | disposition home or self-care (01) ==
LOC: C.ENDO 08:57
PROVIDERS: ATTEND Internal Medicine Gastroenterology
DX: R10.9 Unspecified abdominal pain (principal); K29.70 Gastritis, unspecified, without bleeding; K44.9 Diaphragmatic hernia without obstruction or gangrene
CPT/HCPCS: 43239; 84703; 88305; J2704